=== PATIENT | male | born 1955 | race Caucasian/White ===

== ENCOUNTER 2020-06-19 08:30 | Outpatient (CLI) | payer OTHER, SELFPAY ==
--- NOTE | 2020-06-19 08:48 | XRR_ITS ---
PROCEDURE INFORMATION: Exam: XR Chest, 2 Views Exam date and time: 06/19/2020 8:54 AM Age: 64 years old Clinical indication: Short of breath x 6 months TECHNIQUE: Imaging protocol: XR of the chest Views: 2 views. COMPARISON: No relevant prior studies available. FINDINGS: Lungs: No pneumonia or pulmonary edema. Pleural spaces: No pleural effusion or pneumothorax. Heart/Mediastinum: The cardiac silhouette is not enlarged. The mediastinal contours are normal. Bones/joints: Curvature of the upper thoracic spine convex to the left. Mild multilevel disc degeneration in the thoracic spine. Soft tissues: There is a left epicardial fat pad. XR/XR chest 2V* [id number] IMPRESSION: No acute abnormality.
--- NOTE | 2020-06-19 08:48 | USCV_ITS ---
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 No significant arterial obstruction on the right side Dr Ester Silverio MD [facility] (Electronically Signed) Final Date: 19 June 2020 19:33 S
== END 2020-06-19 08:31 | disposition home or self-care (01) ==
LOC: US 08:30
PROVIDERS: PCP Nurse Practitioner; Visit Provider Nurse Practitioner
DX: R06.02 Shortness of breath (principal); I25.10 Atherosclerotic heart disease of native coronary artery without angina pectoris
CPT/HCPCS: 71046; 93922

== ENCOUNTER → 2021-05-21 13:54 | Outpatient (BNVA) | payer OTHER, SELFPAY | PROVIDERS: PCP Nurse Practitioner; Visit Provider Nurse Practitioner Family | DX: Z20.822 Contact with and (suspected) exposure to COVID-19 (principal) | CPT/HCPCS: 87635 ==

== ENCOUNTER 2021-05-23 12:31 | Outpatient (CLI) | payer OTHER, SELFPAY ==
[2021-05-23 12:38] VITALS: BP 126/76; PULSE 76; RESP 18; TEMP 36.5; O2SAT 94; BMI 31.7
[2021-05-23 13:13] VITALS: BP 109/94; PULSE 78; RESP 18; TEMP 36.8; O2SAT 94
[2021-05-23 14:09] VITALS: BP 115/69; PULSE 78; RESP 18; TEMP 36.6; O2SAT 96
== END 2021-05-23 12:32 | disposition home or self-care (01) ==
LOC: OPS 12:33
PROVIDERS: PCP Nurse Practitioner; Visit Provider Nurse Practitioner Family
DX: U07.1 COVID-19 (principal)
CPT/HCPCS: 96365

== ENCOUNTER → 2021-06-20 12:21 | Outpatient (BNVA) | payer OTHER, SELFPAY | PROVIDERS: PCP Nurse Practitioner; Visit Provider Specialist | DX: G25.81 Restless legs syndrome (principal); I20.0 Unstable angina; R06.02 Shortness of breath; R91.8 Other nonspecific abnormal finding of lung field; M54.16 Radiculopathy, lumbar region; Z87.891 Personal history of nicotine dependence | CPT/HCPCS: 99205 ==

== ENCOUNTER 2021-07-27 12:31 | Outpatient (CLI) | payer OTHER, SELFPAY ==
--- NOTE | 2021-07-27 12:41 | CT_ITS ---
WS: [id number] LDCT LUNG CANCER SCREENING TECHNIQUE: Noncontrast CT of the chest with coronal and sagittal reformatted images. CLINICAL INFORMATION: Z87.891 - Personal history of nicotine dependence COMPARISON: None. DLP: 86.68 mGy.cm DIvol: Mean CTDIvol: 1.60 (mGy) All CT scans at [facility] use at least one of these dose optimization techniques: automat ed exposure control; mA and/or kV adjustment per patient size (includes targeted exams where dose is matched to clinical indication); or iterative reconstruction. FINDINGS: Moderate chronic emphysematous changes. No acute pulmonary infiltrates. No pleural fluid. Normal caliber thoracic aorta. No mediastinal or hilar lymphadenopathy. No axillary lymphadenopathy. Fibrosis the lung apices. Pleural plaques LEFT upper lobe. Adrenal glands are normal. Normal GE junction. Partially visualized low-attenuation lesions in the li cj nonspecific and recommend further evaluation with contrast-enhanced CT abdomen pelvis with liver protocol. Metastatic disease not excluded. Hazy slightly spiculated opacity in the RIGHT lower lobe measuring 12 mm. This has a suspicious confi guration and recommend further evaluation with PET/CT. CT/CT lung screening 74700 IMPRESSION: 1. Spiculated 12 mm lesion RIGHT lower lobe has a suspicious appearance and ne oplasm not excluded. Recommend further evaluation with PET/CT. 2. Partially visualized low attenuation lesions in the liver some of which may represent hepatic cysts, however others are nonspecific and metastatic disease not excluded. Recommend further evaluation with contrast-enhanced CT abdomen p manuel with liver protocol. 3. No mediastinal or hilar lymphadenopathy. LUNG-RADS: 4AS-Probably Suspicious with Significant Findings FOLLOW UP: PET/CT recommended
--- NOTE | 2021-07-27 13:30 | USCV_ITS ---
Rudy Joe Age: 65 Gender: M : 1955 Exam Date: 07/27/2021 12:52 Ordering Phys: Marianna Clemens MD Technologist: Leydi Laguna Exam Location: [facility] Indication: SOB BP: / HR: 68 Rhythm: Sinus Technical Quality: Adequate MEASUREMENTS (Male / Female) Normal Values 2D ECHO LV Diastolic Diameter PLAX 5.4 cm 4.2 - 5.9 / 3.9 - 5.3 cm LV Systolic Diameter PLAX 3.1 cm LV Chamber Size 3.6 cm IVS Diastolic Thickness 0.9 cm 0.6 - 1.0 / 0.6 - 0.9 cm IVS Systolic Thickness 1.5 cm LVPW Diastolic Thickness 1.2 cm 0.6 - 1.0 / 0.6 - 0.9 cm LVPW Systolic Thickness 1.5 cm RV Chamber Size 4.3 cm LVOT Diameter 2.0 cm LV Ejection Fraction 2D Teich 73.3 % LV Ejection Fraction MOD 2C 28.0 % LV Ejection Fraction 2C AL 28.1 % LA Diameter 3.5 cm LA Width 3.4 cm LA Height 2.5 cm RA Width 5.2 cm RA Height 4.3 cm Aorta at Sinotubular Diameter 3.2 cm M-MODE Aortic Annulus Diameter 3.6 cm LA Ao Ratio MM 0.9 MV E Point Septal Separation 1.1 cm DOPPLER AV Peak Velocity 232.0 cm/s LVOT Peak Velocity 81.7 cm/s AV Area Cont Eq vti 1.2 cm squared AV Area Cont Eq pk 1.2 cm squared MV Area PHT 3.3 cm squared Mitral E to A Ratio 1.3 MV E' Velocity 55.0 cm/s Mitral E to MV E' Ratio 9.5 Mitral E to LV E' Lateral Ratio 8.9 Mitral E to LV E' Septal Ratio 10.2 TR Peak Velocity 265.8 cm/s TR Peak Gradient 28.3 mmHg TR Mean Velocity 211.6 cm/s TR Mean Gradient 20.3 mmHg TR Velocity Time Integral 94.3 cm TV Peak E Velocity 70.0 cm/s Right Atrial Pressure 3.0 mmHg Pulmonary Artery Systolic Pressu 31.3 mmHg PV Peak Velocity 71.0 cm/s RV Acceleration Time 0.1 s RV Ejection Time 0.4 s RV AcT/ET 0.4 FINDINGS Left Ventricle Normal left ventricular size and systolic function, EF 55%. (Visual).no regional wall motion abnormalities. Right Ventricle The right ventricle is normal in size and function. Right Atrium The right atrium is normal in size. Left Atrium The left atrium is normal in size. Mitral Valve No gross abnormalities noted . Aortic Valve Mild to moderate aortic valve stenosis with a peak velocity of 2.32 m/s, peak gradient of 22 and a mean gradient of 12 mmHg. Valve area is calculated to be 1.2 cm2. Cannot exclude a bicuspid valve. Tricuspid Valve No gross abnormalities noted Pulmonic Valve Pulmonic valve not well visualized. Pericardium Normal pericardium without effusion. Aorta Normal ascending aorta dimension. CONCLUSIONS Normal left ventricular size and systolic function, EF 55%. (Visual).no regional wall motion abnormalities. Mild to moderate aortic valve stenosis with a peak velocity of 2.32 m/s, peak gradient of 22 and a mean gradient of 12 mmHg. Valve area is calculated to be 1.2 cm2. Cannot exclude a bicuspid aortic valve. There is no pericardial effusion. There are no intracardiac masses. No previous study is available for comparison. Dr Ester Silverio MD [facility] (Electronically Signed) Final Date: 27 July 2021 18:44 S
== END 2021-07-27 12:32 | disposition home or self-care (01) ==
LOC: RAD 12:35
PROVIDERS: PCP Nurse Practitioner; Visit Provider Specialist
DX: Z12.2 Encounter for screening for malignant neoplasm of respiratory organs (principal); Z87.891 Personal history of nicotine dependence; R06.02 Shortness of breath; R91.8 Other nonspecific abnormal finding of lung field
CPT/HCPCS: 71271; 93306

== ENCOUNTER 2021-07-30 11:36 | Outpatient (CLI) | payer OTHER, SELFPAY ==
[2021-07-30 12:25] LABS: Ferritin 258 ng/mL (30-400); Iron 78 ug/dL (59-158)
[2021-07-30 12:41] LABS: Vitamin B12 710 pg/mL (232-1245)
[2021-07-30 13:15] LABS: Percent Saturation 25.4 % (20-50); Total Iron Binding Capacity 307 mcg/dl; Unsaturated Iron Binding 229 ug/dL (112-347)
== END 2021-07-30 11:37 | disposition home or self-care (01) ==
PROVIDERS: PCP Nurse Practitioner; Visit Provider Specialist
DX: G25.81 Restless legs syndrome (principal)
CPT/HCPCS: 82607; 82728; 83540; 83550

== ENCOUNTER → 2021-07-31 08:10 | Outpatient (BNVA) | payer OTHER, SELFPAY | PROVIDERS: PCP Nurse Practitioner; Visit Provider Specialist | DX: G25.81 Restless legs syndrome (principal); I20.0 Unstable angina; Z87.891 Personal history of nicotine dependence; R91.8 Other nonspecific abnormal finding of lung field; K76.89 Other specified diseases of liver | CPT/HCPCS: 99214 ==

== ENCOUNTER → 2021-09-13 08:33 | Outpatient (BNVA) | payer OTHER, SELFPAY | PROVIDERS: PCP Nurse Practitioner; Visit Provider Thoracic Surgery (Cardiothoracic Vascular Surgery) | DX: R91.8 Other nonspecific abnormal finding of lung field (principal); R06.02 Shortness of breath; Z87.891 Personal history of nicotine dependence; F12.90 Cannabis use, unspecified, uncomplicated | CPT/HCPCS: 99203 ==

== ENCOUNTER 2021-09-19 08:29 | Outpatient (CLI) | payer OTHER, SELFPAY ==
--- NOTE | 2021-09-19 14:06 | PFTS_ITS ---
Date of Study:09/19/21 Date of Dictation: 09/24/2021 MECHANICS: Postbronchodilator forced vital capacity (FVC) is reduced Postbronchodilator forced expiratory volume in one second (FEV1) is moderately reduced. 2.46 L 77% FEV1/FVC is reduced. There is significant bronchodilator response. FLOW VOLUME LOOP: Sloping of expiratory limb suggestive of airflow obstruction . LUNG VOLUMES: Total lung capacity (TLC) is normal. Residual volume (RV) is normal. DIFFUSING CAPACITY FOR CARBON MONOXIDE: Normal INTERPRETATION: The pulmonary function tests are consistent with moderate airflow obstruction on spirometry with significant bronchodilator response. Normal lung volumes. Normal gas transfer. Constellation of findings consistent with reversible airflow obstruction like asthma. Correlate clinically. MTDD
== END 2021-09-19 08:30 | disposition home or self-care (01) ==
LOC: RT 08:31
PROVIDERS: PCP Nurse Practitioner; Visit Provider Thoracic Surgery (Cardiothoracic Vascular Surgery)
DX: R06.02 Shortness of breath (principal); F17.210 Nicotine dependence, cigarettes, uncomplicated
CPT/HCPCS: 94060; 94726; 94729; J7611

== ENCOUNTER → 2021-09-28 10:07 | Outpatient (BNVA) | payer OTHER, SELFPAY | PROVIDERS: PCP Nurse Practitioner; Visit Provider Internal Medicine Cardiovascular Disease | DX: R06.02 Shortness of breath (principal); I73.9 Peripheral vascular disease, unspecified; J45.909 Unspecified asthma, uncomplicated; G47.10 Hypersomnia, unspecified; E78.5 Hyperlipidemia, unspecified; E03.9 Hypothyroidism, unspecified; Z87.891 Personal history of nicotine dependence | CPT/HCPCS: 99204; 99205 ==

== ENCOUNTER → 2021-10-11 14:10 | Outpatient (BNVA) | payer OTHER, SELFPAY | PROVIDERS: PCP Nurse Practitioner; Visit Provider Internal Medicine Critical Care Medicine | DX: J44.9 Chronic obstructive pulmonary disease, unspecified (principal); R91.1 Solitary pulmonary nodule; G47.10 Hypersomnia, unspecified; R13.10 Dysphagia, unspecified; I35.0 Nonrheumatic aortic (valve) stenosis; R06.02 Shortness of breath; R91.8 Other nonspecific abnormal finding of lung field; Z86.16 Personal history of COVID-19; Z87.891 Personal history of nicotine dependence; E78.5 Hyperlipidemia, unspecified; E03.9 Hypothyroidism, unspecified | CPT/HCPCS: 99204 ==

== ENCOUNTER 2021-10-30 09:32 | Emergency (ER) | payer OTHER, SELFPAY ==
[2021-10-30 09:52] VITALS: BP 114/73; PULSE 95; RESP 22; TEMP 36.7; O2SAT 95; BMI 33.2
--- NOTE | 2021-10-30 11:35 | ECG_ITS ---
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 Measurements Intervals [place] Rate: 75 P: -56 DC: 126 QRS: 81 QRSD: 109 T: 57 QT: 378 QTc: 424 Interpretive Statements ECTOPIC ATRIAL RHYTHM EARLY REPOLARIZATION [ST ELEVATION WITH NORMALLY INFLECTED T-WAVE] ABNORMAL RHYTHM ECG No previous ECG available for comparison Electronically Signed On 10-30-2021 22:28:46 CDT by Ester Silverio M.D. [email or web address] ([email or web address]) [email or web address] va medical [id number]
--- NOTE | 2021-10-30 11:35 | XR_ITS ---
WS: [id number] Exam: XR chest 1V portable [id number] Date/Time of Exam: 10/30/2021 11:41 AM Reason For Exam: dyspnea Comparison 03/16/2021. The lungs are hyperinflated and clear. Normal cardiomediastinal silhouette. No pleural effusions. Reg ional bony elements are intact. XR/XR chest 1V portable [id number] IMPRESSION: 1. Pulmonary hyperinflation. No acute process.
[2021-10-30 12:00] VITALS: BP 112/64; PULSE 75; RESP 18; O2SAT 95
--- NOTE | 2021-10-30 12:02 | ED_ITS ---
HPI - General Adult General: Chief complaint: Shortness of Breath/Dyspnea Stated complaint: SOB Time Seen by Provider: 10/30/21 11:35 History of Present Illness: Patient is a 66-year-old male with history of recent COVID 2-month ago, COPD not on oxygen presenting to the emergency room with 10 days of dyspnea and productive cough. Patient tells me that he has been having symptoms for the last 10 days that has not improved. Patient reports productive yellow/green phlegm. Patient reports subjective fever and chills at home. Denies any sick contact. Patient reports generalized ache, and shortness of breath. Patient denies any chest pain, no complaints with nausea/vomiting, d iarrhea melena/hematochezia. Patient has no complaints at this time. Patient denies any seasonal allergies. Went to see his primary care provider had an x-ray which showed negative findings in the last 10 days. Patient has not been started on any antibiotics. Onset:10 days ago Duration:10 days Location:home Severity:mild/moderate Associated symptoms: Reports dyspnea; Deny chest pain, nausea, rash, palpitations or vomiting Review of Systems Const: Denies: fever(s) or chills Eyes: Denies: change in vision ENMT: Denies: mouth pain Card: Denies: chest pain or palpitations Resp: Reports: dyspnea and productive cough GI: Denies: abdominal pain, nausea, vomiting or diarrhea : Denies: dysuria Musc: Denies: extremity pain Skin/Breast: Denies: rash or new lesions Neuro: Denies: weakness in extremities Psych: Reports: other (Normal mood) Jossue/Lymph: Denies: easy bruising PFS ED PFSH: Medical History BPH (benign prostatic hyperplasia) COPD (chronic obstructive pulmonary disease) Former smoker Hyperlipidemia Hypothyroidism Non-Hodgkin lymphoma in remission PAD (peripheral artery disease) Family History Father CAD (coronary artery disease) S/P CABG (coronary artery bypass graft) Hypertension Myocardial infarction Social History Smoking and tobacco status: former smoker Quit status (tobacco): has quit using tobacco Year quit tobacco: 2020 Former quit date comment: 1 ppd X 50 years Alcohol intake: former Year of sobriety/quit date alcohol: 2011 Physical Exam Const: COMMON NORMALS: alert HENMT: COMMON NORMALS: atraumatic HEAD & SCALP: atraumatic MOUTH: moist mucous membranes not abnormal Eye: COMMON NORMALS: EOMs intact bilaterally and conjunctivae normal CONJUNCTIVA: Yes conjunctivae normal Neck/C-Spine: COMMON NORMALS: full ROM and supple Resp: COMMON NORMALS: normal respiratory effort and clear to auscultation bilaterally AUSCULTATION: clear to auscultation bilaterally OTHER: + no wheezes b/l Cardio: COMMON NORMALS: regular rate RATE: regular rate GI: COMMON NORMALS: Soft to palpation and non-tender PALPATION: Yes Soft to palpation Extremity: COMMON NORMALS: full ROM Neuro: SENSORIUM/ORIENTATION: Yes alert MOTOR EXAM: No Abnormal motor strength present and Other motor observations present (no focal motor deficits) Psych: COMMON NORMALS: speech normal SPEECH: Yes normal speech MOOD & AFFECT: Yes euthymic mood Course Vital Signs: Vital signs: Vital Signs Temperature 98.1 F 10/30/21 09:52 Pulse Rate 71 10/30/21 13:58 Respiratory Rate 16 10/30/21 13:58 Blood Pressure 112/64 10/30/21 12:00 Pulse Oximetry 92 10/30/21 13:58 [facility] - General Adult Medical Decision Making 66-year-old male with a history of COVID from 2-month ago, COPD presenting to emergency room with productive cough and dyspnea x10 days. On exam, patient is afebrile, hemodynamically stable, no increased work of breathing. Patient satting greater than 90% on room air. No finding of wheezing on lung exam. Minimal white count today. X-ray chest negative for any acute pneumonia. Patient received DuoNeb and steroid reports symptoms of cough and dyspnea improved. Doubt ACS/PE or other emergent causes of chest pain. No suspicion for aortic dissection given no widened mediastinum, 2+ upper extremity pulses, or tearing pain. No suspicion for PE given no pleuritic chest pain, recent immobilization or surgery hemoptysis, or other VTE risk factors. EKG is non-ischemic. XR normal. Rx albuterol inhaler PRN dyspnea and cough Disposition: Discharge. Patient counseled regarding diagnostic impression, treatment plan. Patient given ED strict return precautions to return for continuation, worsening, or development of new symptoms. Instructed to f/u w/ PCP regarding symptoms today. Patient verbalized understanding. Lab Data : 10/30/21 12:00 10/30/21 12:00 Radiology Impressions Chest X-Ray 10/30/21 11:35 IMPRESSION: 1. Pulmonary hyperinflation. No acute process. Laboratory Results WBC 9.7 10^3/uL (4.0-10.0) 10/30/21 12:00 RBC 4.90 10^6/uL (4.1-5.3) 10/30/21 12:00 Hgb 14.4 g/dL (11.7-16.6) 10/30/21 12:00 Hct 43.8 % (42.0-52.0) 10/30/21 12:00 MCV 89.4 fl (80-94) 10/30/21 12:00 MCH 29.4 pg (28.0-34.0) 10/30/21 12:00 MCHC 32.9 g/dL (30.0-36.0) 10/30/21 12:00 RDW 14.5 % (12.1-15.1) 10/30/21 12:00 Plt Count 256 10^3/cmm (130-400) 10/30/21 12:00 MPV 8.5 fL (7.4-10.4) 10/30/21 12:00 Neut % (Auto) 67.4 % 10/30/21 12:00 Lymph % (Auto) 21.3 % 10/30/21 12:00 Gates % (Auto) 6.4 % 10/30/21 12:00 Eos % (Auto) 2.2 % 10/30/21 12:00 Baso % (Auto) 0.5 % 10/30/21 12:00 Neut # (Auto) 6.56 10^3/uL (1.8-7.7) 10/30/21 12:00 Lymph # (Auto) 2.1 10^3/uL (0.8-4.8) 10/30/21 12:00 Gates # (Auto) 0.6 10^3/uL (0.2-0.9) 10/30/21 12:00 Eos # (Auto) 0.2 10^3/uL (0.0-0.8) 10/30/21 12:00 Baso # (Auto) 0.1 10^3/uL (0.0-0.1) 10/30/21 12:00 Nucleated RBC % (auto) 0 % 10/30/21 12:00 Nucleated RBCs # 0.0 /100WBC 10/30/21 12:00 Sodium 135 mmol/L (136-145) L 10/30/21 12:00 Potassium 4.1 mmol/L (3.5-5.1) 10/30/21 12:00 Chloride 98 mmol/L (98-107) 10/30/21 12:00 Carbon Dioxide 27 mmol/L (22-29) 10/30/21 12:00 Anion Gap 14.1 (5-19) 10/30/21 12:00 BUN 18 mg/dL (8-23) 10/30/21 12:00 Creatinine 1.2 mg/dL (0.7-1.2) 10/30/21 12:00 GFR Calculation 60.2 mL/min (90-130) L 10/30/21 12:00 Glucose 103 mg/dL (65-115) 10/30/21 12:00 Calculated Osmolality 282 mOsm/kg (285-295) L 10/30/21 12:00 Calcium 8.9 mg/dL (8.5-10.5) 10/30/21 12:00 Troponin T Baseline 9 ng/L (0-15) 10/30/21 12:00 Troponin T 120 Minute 7.68 ng/L (0-15) 10/30/21 13:37 C-Reactive Protein 22.8 mg/L (0.0-4.9) H 10/30/21 12:00 NT-Pro-B Natriuret Pep 269 pg/mL (0-125) H 10/30/21 12:00 Procalcitonin 0.07 ng/mL (0-0.5) 10/30/21 12:00 Imaging Data Other Imaging: Radiologist's impression: [facility] [address] [place] [address] XRay Report Signed Patient: Rudy Joe Unit #: [id number] : 1955 Age/Sex: 66 / M ADM Date: 10/30/21 Loc: ER Room/Bed: Attending Dr: Ordering Provider/Ordering MD: Thomas Lambert MD Date of Service: 10/30/21 Procedure(s): XR chest 1V portable [id number] Accession Number(s): [id number] Report Number: [id number] WS: [id number] Exam: XR chest 1V portable [id number] Date/Time of Exam: 10/30/2021 11:41 AM Reason For Exam: dyspnea Comparison 03/16/2021. The lungs are hyperinflated and clear. Normal cardiomediastinal silhouette. No pleural effusions. Regional bony elements are intact. XR/XR chest 1V portable [id number] IMPRESSION: 1. Pulmonary hyperinflation. No acute process. ? Dictated By: Jean Claude Copeland DO Signed By: Jean Claude Copeland DO Signed Date/Time: 10/30/21 1151 DD/ 1150 Discharge Plan Discharge Patient Disposition: Home Clinical Impression: Dyspnea, Cough Condition: Stable Prescriptions: New albuterol sulfate 90 mcg/actuation HFA aerosol inhaler 2 inh inhalation Q4H PRN (Reason: shortness of breath or wheezing) 5 Days Qty: 6.7 0RF No Action pantoprazole 40 mg tablet,delayed release (DR/EC) 40 mg PO .3-4 times daily 0RF tamsulosin 0.4 mg capsule 0.4 mg PO TID 0RF Spiriva with HandiHaler 18 mcg capsule, w/inhalation device 1 cap inhalation DAILY 30 Days Qty: 60 3RF Rx Instructions: puncture 1 cap using device; one dose = 2 inhalations fluticasone propion-salmeterol [Wixela Inhub] 250-50 mcg/dose blister with device 1 inh inhalation Q12H 30 Days Qty: 60 3RF diphenhydramine HCl [Sleep Aid (diphenhydramine)] 25 mg capsule 25 mg PO .HS PRN (Reason: Sleep) 0RF atorvastatin 10 mg tablet 10 mg PO DAILY Qty: 30 3RF aspirin 81 mg tablet,delayed release (DR/EC) 81 mg PO DAILY Qty: 30 3RF hydrochlorothiazide 12.5 mg tablet 12.5 mg PO DAILY Qty: 30 3RF albuterol sulfate [ProAir HFA] 90 mcg/actuation HFA aerosol inhaler 1 inh inhalation QID PRN (Reason: shortness of breath or wheezing) Qty: 6.7 2RF pramipexole [Mirapex] 0.5 mg tablet 0.5 mg PO QID Qty: 240 4RF Rx Instructions: 1-2 tabs up to 4 times a day Discharge Orders: Discharge ED (Routine); Ordered 10/30/21 Ordered By: Thomas Lambert Referrals: Marisa Ram FNP [Primary Care Provider] - Discharge Diet: Advance as tolerated Discharge Activity: Increase activity as tolerated Patient Instructions: Dyspnea (ED), Acute Cough (ED) Activity Restrictions/Additional Instructions: Come back to the emergency room if your symptoms worsen, have any shortness of breath, fever/chills, dehydration, inability tolerate food or drinks, any difficulty breathing, or any new or concerning complaints. 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
[2021-10-30 12:19] LABS: Basophils # 0.1 10^3/uL (0.0-0.1); Basophils % 0.5 %; Eosinophils # 0.2 10^3/uL (0.0-0.8); Eosinophils % 2.2 %; Hematocrit 43.8 % (42.0-52.0); Hemoglobin 14.4 g/dL (11.7-16.6); Lymphocytes # 2.1 10^3/uL (0.8-4.8); Lymphocytes % 21.3 %; Mean Corpuscular HGB Conc 32.9 g/dL (30.0-36.0); Mean Corpuscular Hemoglobin 29.4 pg (28.0-34.0); Mean Corpuscular Volume 89.4 fl (80-94); Mean Platelet Volume 8.5 fL (7.4-10.4); Monocytes # 0.6 10^3/uL (0.2-0.9); Monocytes % 6.4 %; Neutrophils # 6.56 10^3/uL (1.8-7.7); Neutrophils % 67.4 %; Nucleated Red Blood Cells % 0 %; Platelet Count 256 10^3/cmm (130-400); Red Cell Distribution Width 14.5 % (12.1-15.1); White Blood Count 9.7 10^3/uL (4.0-10.0)
[2021-10-30] MEDS: ipratropium-albuterol 3 mL Neb INHALATION ×3 (12:26→12:36)
[2021-10-30 12:28] VITALS: PULSE 77; RESP 20; O2SAT 96
[2021-10-30 12:36] LABS: Troponin(5th) Baseline 9 ng/L (0-15)
[2021-10-30 12:41] VITALS: PULSE 84; RESP 18; O2SAT 97
[2021-10-30 12:48] LABS: NT Pro B Type Natriuretic Pept 269 pg/mL (0-125); Procalcitonin 0.07 ng/mL (0-0.5)
[2021-10-30 12:58] LABS: Anion Gap 14.1 (5-19); Blood Urea Nitrogen 18 mg/dL (8-23); C Reactive Protein 22.8 mg/L (0.0-4.9); Calcium 8.9 mg/dL (8.5-10.5); Carbon Dioxide 27 mmol/L (22-29); Chloride 98 mmol/L (98-107); Creatinine Clr Calc Pharmacy 69.3693; Glomerular Filtration Rate 60.2 mL/min (90-130); Glucose 103 mg/dL (65-115); Osmolality Calculated 282 mOsm/kg (285-295); Potassium 4.1 mmol/L (3.5-5.1); Sodium 135 mmol/L (136-145)
--- NOTE | 2021-10-30 13:35 | ECG_ITS ---
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 Measurements Intervals [place] Rate: 98 P: 76 VA: 130 QRS: 96 QRSD: 110 T: 66 QT: 357 QTc: 456 Interpretive Statements SINUS RHYTHM BORDERLINE RIGHT AXIS DEVIATION [QRS AXIS > 90] Compared to ECG 10/30/2021 11:43:55 Ectopic atrial rhythm no longer present Early repolarization no longer present Electronically Signed On 10-30-2021 22:36:57 CDT by Ester Silverio M.D. [id number]
[2021-10-30 13:58] VITALS: PULSE 71; RESP 16; O2SAT 92
[2021-10-30 13:58] LABS: Troponin 5 2HR 7.68 ng/L (0-15)
[2021-10-30 14:35] LABS: Troponin 5 2HR Delta -1.34 ABS# (0-10)
[2021-10-30 17:21] LABS: Adenovirus Not Detected (NOT DETECT); Chlamydia Pneumoniae Not Detected (NOT DETECT); Coronavirus 229E,HKU1,NL63,OC4 Not Detected (NOT DETECT); Human Metapneumovirus Not Detected (NOT DETECT); Human Rhinovirus/Enterovirus Not Detected (NOT DETECT); Influenza A Not Detected (NOT DETECT); Influenza A H1 Not Detected (NOT DETECT); Influenza A H1-2009 Not Detected (NOT DETECT); Influenza A H3 Not Detected (NOT DETECT); Influenza B Not Detected (NOT DETECT); Mycoplasma Pneumoniae Not Detected (NOT DETECT); Parainfluenza Virus Type 1 Not Detected (NOT DETECT); Parainfluenza Virus Type 2 Not Detected (NOT DETECT); Parainfluenza Virus Type 3 Not Detected (NOT DETECT); Parainfluenza Virus Type 4 Not Detected (NOT DETECT); Respiratory Syncytial Virus A Not Detected (NOT DETECT); Respiratory Syncytial Virus B Not Detected (NOT DETECT); SARS-COV-2 Not Detected (NOT DETECT)
== END 2021-10-30 14:15 | disposition home or self-care (01) ==
PROVIDERS: Emergency Provider Emergency Medicine; PCP Nurse Practitioner
DX: R06.00 Dyspnea, unspecified (principal); R05.9 Cough, unspecified; Z79.82 Long term (current) use of aspirin; J44.9 Chronic obstructive pulmonary disease, unspecified; E78.5 Hyperlipidemia, unspecified; Z85.72 Personal history of non-Hodgkin lymphomas; Z87.891 Personal history of nicotine dependence
CPT/HCPCS: 36415; 71045; 80048; 83880; 84145; 84484; 85025; 86140; 87486; 87581; 87633; 93005; 94640; 96374; 99285; J2930

== ENCOUNTER → 2021-11-09 08:36 | Outpatient (BNVA) | payer OTHER, SELFPAY | PROVIDERS: PCP Nurse Practitioner; Visit Provider Surgery | DX: R13.10 Dysphagia, unspecified (principal) | CPT/HCPCS: 99203 ==

== ENCOUNTER 2021-11-14 06:56 | Day surgery (SDC) | payer OTHER, SELFPAY ==
[2021-11-14 07:17] VITALS: BP 105/72; PULSE 81; RESP 18; TEMP 36.2; O2SAT 94
[2021-11-14] MEDS: sodium chloride 0.9% 1,000 ML 30 ML IV (07:20)
--- NOTE | 2021-11-14 07:25 | W.PM.OPSUD ---
Surgery/Procedure H&P Update DATE OF PROCEDURE: November 14, 2021 DATE H&P PERFORMED: 11/09/21 CHANGES TO PREVIOUS DOCUMENTATION: None PLANNED PROCEDURE: Operation Date: 11/14/21 08:30 Proposed Procedures p EGD 93426,R13.10(Not Applicable) - Willem Currie DO
--- NOTE | 2021-11-14 08:14 | ANES.PREANE2 ---
Pre-Anesthetic Assessment Height/Weight: Height 1.75 m Weight 99.79 kg Temp Pulse Resp BP Pulse Ox 97.2 F L 81 18 105/72 94 11/14/21 07:17 11/14/21 07:17 11/14/21 07:17 11/14/21 07:17 11/14/21 07:17 Operation Date: 11/14/21 08:30 Proposed Procedures p EGD 41725,R13.10(Not Applicable) - Willem Currie DO Familial anesthetic complications: none Was Beta Carolee taken within 24 hours: N/A Was Clonidine taken within 24 hours: N/A Last intake: Intake Last Liquid Date 11/13/21 Last Liquid Time 23:00 Last Solid Date 11/13/21 Last Solid Time 23:00 Social No alcohol and No tobacco Exam alert, oriented x 3, clear to auscultation bilaterally and regular rate & rhythm Airway Mallampati: Class II Dentition: full Pulmonary Asthma COPD - no O2, no hospitalization CV/HEM Peripheral Vascular Disease Aortic stenosis - moderate Metabolic Hyperlipidemia and Thyroid Disease Anesthetic Plan ASA status: 3 Anesthesia: MAC Risk of > 500 ml blood loss (7ml/kg in children): No Medications/Allergies Home Medications Medication Instructions Recorded Confirmed Last Taken Type albuterol sulfate 90 mcg/actuation 1 inh INHALATION QID PRN #6.7 g 09/28/21 11/14/21 11/13/21 Rx aerosol inhaler (ProAir HFA) aspirin 81 mg tablet,delayed 81 mg PO DAILY #30 tab 09/28/21 11/14/21 11/13/21 Rx release atorvastatin 10 mg tablet 10 mg PO DAILY #30 tab 09/28/21 11/14/21 11/13/21 Rx hydrochlorothiazide 12.5 mg tablet 12.5 mg PO DAILY #30 tab 09/28/21 11/14/21 11/13/21 Rx pantoprazole 40 mg tablet,delayed 40 mg PO .3-4 times daily tab 09/28/21 11/14/21 11/13/21 History release tamsulosin 0.4 mg capsule 0.4 mg PO TID cap 09/28/21 11/14/21 11/13/21 History fluticasone 250 mcg-salmeterol 50 1 inh INHALATION Q12H 30 Days #60 10/11/21 11/14/21 11/13/21 Rx mcg/dose blistr powdr for ea inhalation (Wixela Inhub) tiotropium bromide 18 mcg capsule 1 cap INHALATION DAILY 30 Days #60 10/11/21 11/14/21 11/13/21 Rx with inhalation device (Spiriva inh with HandiHaler) ropinirole 3 mg tablet 3 mg PO TID 11/14/21 11/14/21 11/14/21 History Allergies Allergy/AdvReac Type Severity Reaction Status Date / Time No Known Allergies Allergy Verified 11/09/21 08:50 [facility] Anesthesia Medical History BPH (benign prostatic hyperplasia) COPD (chronic obstructive pulmonary disease) Former smoker Fracture of right femur following insertion of orthopedic implant Hyperlipidemia Hypothyroidism Non-Hodgkin lymphoma in remission PAD (peripheral artery disease) Family History Father CAD (coronary artery disease) S/P CABG (coronary artery bypass graft) Hypertension Myocardial infarction Social History Smoking and tobacco status: former smoker Quit status (tobacco): has quit using tobacco Year quit tobacco: 2020 Former quit date comment: 1 ppd X 50 years Alcohol intake: former Year of sobriety/quit date alcohol: 2011 Data Anesthesia Cardiac Studies: Echocardiogram 07/27/21
[2021-11-14 08:37] VITALS: BP 81/50; PULSE 73; RESP 14; TEMP 36.4; O2SAT 91
[2021-11-14 08:51] VITALS: BP 102/60; PULSE 82; RESP 16; O2SAT 94
[2021-11-14 09:00] VITALS: BP 104/62; PULSE 74; RESP 16; O2SAT 94
== END 2021-11-14 09:10 | disposition home or self-care (01) ==
PROVIDERS: PCP Nurse Practitioner; Visit Provider Surgery
PROC: 0DJ08ZZ Inspection of Upper Intestinal Tract, Via Natural or Artificial Opening Endoscopic (ICD-10-PCS; CPT 43235; principal; 2021-11-14 08:30)
DX: R13.10 Dysphagia, unspecified (principal); K20.90 Esophagitis, unspecified without bleeding; J44.9 Chronic obstructive pulmonary disease, unspecified; Z99.81 Dependence on supplemental oxygen; E78.5 Hyperlipidemia, unspecified; Z79.82 Long term (current) use of aspirin; N40.0 Benign prostatic hyperplasia without lower urinary tract symptoms; Z87.891 Personal history of nicotine dependence; E03.9 Hypothyroidism, unspecified
CPT/HCPCS: 43239; 88305; J2704; J7030

== ENCOUNTER 2021-11-19 06:54 | Outpatient (CLI) | payer OTHER, SELFPAY ==
[2021-11-19 07:21] VITALS: BMI 32.5
--- NOTE | 2021-11-19 07:26 | NMCV_ITS ---
NM nikki perf SPECT r/s* [id number] Rudy Joe Age: 66 Gender: M : 1955 Exam Date: 11/19/2021 07:26 Ordering Phys: Lynne Mane MD ([email or web address]) Technologist: GENOVEVA Peters Exam Location: [facility] Indications: SHORTNESS OF BREATH STRESS TEST Please see separate stress test report in [facility] for full findings IMAGE PROTOCOL Rest/Stress 1 Exercise Day Radiopharmaceutical Dose (mCi) Administration Site Administered by Rest: Tc-99m 10.9 IV GENOVEVA Galeas Sestamibi Stress:Tc-99m 32.8 IV GENOVEVA Galeas Sestamijaleesa Rest: 19-Nov-2021 60 Discovery 630 Stress: 19-Nov-2021 30 Discovery 630 Radiopharmaceutical was injected at 85 % maximum heart rate. Images obtained in supine and prone position. SPECT RESULTS Technical Quality: Excellent Raw Data Analysis: Normal Image Corrections: No attenuation or motion correction applied Summed Stress Score: 0 Summed Rest Score: 1 Summed Difference Score: 0 PERFUSION FINDINGS There is a small sized, fixed perfusion defect seen in the apical wall. This is consistent with small sized prior infarct in the LAD territory with no evidence of ischemia FUNCTIONAL RESULTS (calculated via Gated SPECT) Stress Image LV EF (%): 71 Stress EDV (mL):125 TID: 0.95 Stress ESV (mL):36 FUNCTIONAL FINDINGS: There is normal left ventricular systolic function. IMPRESSIONS 1. Abnormal myocardial perfusion imaging with small sized infarct seen in LAD territory. No evidence of ischemia is seen 2. LV systolic function is normal Isra Reyes MD (Electronically Signed) Final Date: 19 November 2021 10:43 S
--- NOTE | 2021-11-19 07:26 | ECG_ITS ---
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 Interpretive Statements NAME OF STUDY: EXERCISE SESTAMIBI STRESS TEST INDICATION: [WILKINS, ] EXERCISE DATA: The patient was exercised by Chapito protocol. Baseline heart rate was 68 beats per minute. Baseline blood pressure was 105/75 millimeters of mercury. Target heart rate was 129 beats per minute. Maximum heart rate achieved was 138, which was 106% of the target heart rate. Maximum blood pressure was 174/71 millimeters of mercury. Total exercise time was 4 minutes 16 seconds. Maximum METs achieved was 7.The reason for ending the test was completion of the protocol. The patient complained of shortness of breath during the stress test, which then resolved at the end of the test. ELECTROCARDIOGRAM: BASELINE: Showed sinus rhythm, normal axis, no significant ST-T changes at the baseline noted. [] EXERCISE: At the peak exercise level, [] No significant ST-T changes suggestive of ischemia noted. [] RECOVERY: During the recovery period, heart rate dropped appropriately. No significant ST-T changes in the recovery suggestive of ischemia noted. [] CONCLUSION: 1. Exercise capacity fair. 2. Heart rate response was appropriate. 3. Blood pressure response was appropriate 4. Symptoms not suggestive of ischemia. 5. Electrocardiogram portion of the stress test was not suggestive of ischemia. 6. Nuclear scan will be documented separately. Electronically Signed On 12-01-2021 12:38:11 CDT by Isra Reyes M.D. [id number]
[2021-11-19 09:20] VITALS: BP 144/78; PULSE 91
== END 2021-11-19 06:55 | disposition home or self-care (01) ==
LOC: CDL 06:54
PROVIDERS: PCP Nurse Practitioner; Visit Provider Internal Medicine Cardiovascular Disease
DX: R06.02 Shortness of breath (principal)
CPT/HCPCS: 78452; 93017; A9500

== ENCOUNTER → 2021-11-23 11:13 | Outpatient (BNVA) | payer OTHER, SELFPAY | PROVIDERS: PCP Nurse Practitioner; Visit Provider Nurse Practitioner Family | DX: I35.0 Nonrheumatic aortic (valve) stenosis (principal) | CPT/HCPCS: 99213 ==

== ENCOUNTER → 2021-11-26 13:18 | Outpatient (BNVA) | payer OTHER, SELFPAY | PROVIDERS: PCP Nurse Practitioner; Visit Provider Internal Medicine Critical Care Medicine | DX: J44.9 Chronic obstructive pulmonary disease, unspecified (principal); R91.1 Solitary pulmonary nodule; G47.10 Hypersomnia, unspecified; R13.10 Dysphagia, unspecified; I35.0 Nonrheumatic aortic (valve) stenosis | CPT/HCPCS: 99214 ==

== ENCOUNTER → 2021-11-30 10:07 | Outpatient (BNVA) | payer OTHER, SELFPAY | PROVIDERS: PCP Nurse Practitioner; Visit Provider Surgery | DX: Z09 Encounter for follow-up examination after completed treatment for conditions other than malignant neoplasm (principal); R13.10 Dysphagia, unspecified; K22.70 Barrett's esophagus without dysplasia | CPT/HCPCS: 99213 ==

== ENCOUNTER 2022-01-01 10:23 | Outpatient (CLI) | payer OTHER, SELFPAY ==
--- NOTE | 2022-01-01 10:45 | FL_ITS ---
WS: [id number] MODIFIED BARIUM SWALLOW HISTORY: FLUOROSCOPY TIME: 1min [id number] # of spot films: 1 Modified barium swallow was performed by the speech pathologist. Fluoroscopy was provided with the pa tient in a lateral projection. Multiple food consistencies were provided. Patient swallowed all food consistencies and liquid consistencies with no difficulty. Several episode s of laryngeal penetration were evident. This happened with the thin liquids and also the liquid joshua er. No aspiration. Barium tablet swallowed without difficulty. FL/FL barium swallow modifd [id number] IMPRESSION: 1. Several episodes of laryngeal penetration with the thin liquids. No aspirat ion. 2. Otherwise negative. Please see speech therapist report also for recommendations.
== END 2022-01-01 10:24 | disposition home or self-care (01) ==
LOC: RAD 10:24
PROVIDERS: PCP Nurse Practitioner; Visit Provider Surgery
DX: K22.70 Barrett's esophagus without dysplasia (principal); R13.10 Dysphagia, unspecified
CPT/HCPCS: 74230; 92611

== ENCOUNTER 2022-01-04 13:32 | Outpatient (CLI) | payer OTHER, SELFPAY ==
--- NOTE | 2022-01-04 | CT_ITS ---
WS: [id number] CT CHEST WITHOUT INTRAVENOUS CONTRAST HISTORY: Abnormal finding f/u TECHNIQUE: Contiguous 5 mm axial imaging performed on the thorax. Coronal and sagittal reformats are submitted. All CT scans at [facility] use at least one of these dose optimization techniques: automated exposure control; mA and/or kV adjustment per patient size (includes targeted exams where dose is matched to clinical indication); or iterative reconstruction. CONTRAST: None DLP: 769.90 mGy.cm COMPARISON: 08/16/2021 and 07/27/2021; PET/CT 08/18/2021 Lungs and central airway: Hyperinflated lungs. Chronic emphysema. Previous the described asymmetry in the RIGHT lower lobe is unchanged. The spiculated on today's examination. Branching pattern suggesti ng this may be focal bronchiectasis. There are 2 adjacent nodules measuring 5 mm in diameter. This ma y be scarring. No suspicious or increasing size or number of nodules. Pleura: Normal. No pleural effusion. Heart and pericardium: Normal size heart with no pericardial effusion. Mediastinum and dania: No mediastinum or hilar adenopathy. Vessels: Mild atherosclerosis aorta. Chest wall and lower neck: No soft tissue masses. Upper abdomen: Multiple low-attenuation lesions in the liver likely cysts. Negative on a prior recent PET/CT. No adrenal mass. Contracted gallbladder. Osseous structures: No destructive process. CT/CT chest wo con [id number] IMPRESSION: 1. Chronic emphysema. 2. Interstitial thickening in a branching distribution and to adjacent nodules in the RIGHT lower lobe similar to prior studies. Negative on recent PET/CT. N o new or increasing size of nodule within either lung. 3. Hepatic cysts. 4. No adenopathy.
== END 2022-01-04 13:33 | disposition home or self-care (01) ==
LOC: RAD 13:33
PROVIDERS: PCP Nurse Practitioner; Visit Provider Internal Medicine Critical Care Medicine
DX: R91.8 Other nonspecific abnormal finding of lung field (principal); Z09 Encounter for follow-up examination after completed treatment for conditions other than malignant neoplasm; J43.8 Other emphysema; R13.10 Dysphagia, unspecified; K76.89 Other specified diseases of liver
CPT/HCPCS: 71250; 99213

== ENCOUNTER 2022-02-21 20:00 | Outpatient (CLI) | payer OTHER, SELFPAY | END 2022-02-21 20:01 | disposition home or self-care (01) | LOC: SLEEP 02-22 06:24 | PROVIDERS: PCP Nurse Practitioner; Visit Provider Nurse Practitioner | DX: R06.83 Snoring (principal); R53.83 Other fatigue; G47.33 Obstructive sleep apnea (adult) (pediatric) | CPT/HCPCS: 95810 ==

== ENCOUNTER 2022-05-21 20:00 | Outpatient (CLI) | payer OTHER, SELFPAY | END 2022-05-21 20:01 | disposition home or self-care (01) | LOC: SLEEP 05-22 07:49 | PROVIDERS: PCP Nurse Practitioner; Visit Provider Nurse Practitioner | DX: G47.33 Obstructive sleep apnea (adult) (pediatric) (principal); R06.02 Shortness of breath; J44.9 Chronic obstructive pulmonary disease, unspecified | CPT/HCPCS: 95811 ==

== ENCOUNTER → 2022-05-27 14:31 | Outpatient (BNVA) | payer OTHER, SELFPAY | PROVIDERS: PCP Nurse Practitioner; Visit Provider Internal Medicine Cardiovascular Disease | DX: R06.02 Shortness of breath (principal); E78.5 Hyperlipidemia, unspecified; I73.9 Peripheral vascular disease, unspecified; E03.9 Hypothyroidism, unspecified; J44.9 Chronic obstructive pulmonary disease, unspecified; G47.10 Hypersomnia, unspecified; J45.909 Unspecified asthma, uncomplicated; Z87.891 Personal history of nicotine dependence; G47.30 Sleep apnea, unspecified; J32.9 Chronic sinusitis, unspecified; R09.82 Postnasal drip | CPT/HCPCS: 99214; Q3014 ==

== ENCOUNTER → 2022-08-08 09:58 | Outpatient (BNVA) | payer OTHER, SELFPAY | PROVIDERS: PCP Nurse Practitioner; Visit Provider Specialist | DX: G25.81 Restless legs syndrome (principal); G47.00 Insomnia, unspecified; R91.1 Solitary pulmonary nodule; G47.33 Obstructive sleep apnea (adult) (pediatric); F17.210 Nicotine dependence, cigarettes, uncomplicated | CPT/HCPCS: 99214 ==

== ENCOUNTER → 2023-01-27 13:15 | Outpatient (BNVA) | payer OTHER, SELFPAY | PROVIDERS: PCP Nurse Practitioner; Visit Provider Internal Medicine Pulmonary Disease | DX: J43.8 Other emphysema (principal); G47.30 Sleep apnea, unspecified; Z87.891 Personal history of nicotine dependence; J32.9 Chronic sinusitis, unspecified | CPT/HCPCS: 99214 ==

== ENCOUNTER 2023-03-03 06:19 | Outpatient (CLI) | payer OTHER, SELFPAY ==
--- NOTE | 2023-03-03 | US_ITS ---
WS: [id number] RIGHT UPPER QUADRANT ULTRASOUND HISTORY: RUQ, Elevated Liver Enzymes COMPARISON: None available. Liver: 16.6 cm in length. Liver is top normal size. The surface of the liver is becoming still slight ly irregular and nodular. There are 2 cysts within the liver. The largest measures 2.0 x 2.4 x 2.1 cm . This is a small cluster of cysts or a cyst with septation. No solid mass or increased vascularity. Portal Vein: Normal hepatopetal flow with monophasic waveform. Gallbladder: Normally distended gallbladder with no stones or wall thickening. CBD: 0.4 cm Pancreas: Normal size and echogenicity. Right kidney: 11.0 cm in length. Normal size and echogenicity. No hydronephrosis or mass. Aorta and IVC: Unremarkable abdominal aorta and IVC. No ascites. IMPRESSION: 1. Hepatic cysts, no solid mass. 2. Mild heterogeneity within the liver and changes suspicious for early changes of cirrhosis. 3. Negative gallbladder.
--- NOTE | 2023-03-03 | USCV_ITS ---
Rudy Joe Age: 67 Gender: M : 1955 Exam Date: 03/03/2023 06:32 Ordering Phys: Marisa Ram Technologist: REGINE Exam Location: [facility] [place] Indication: Screening. h/o smoking HISTORY: Diameter (cm) AP x Transverse x Length Velocity (cm/s) Waveform Prox Aorta: 1.89 x 2.22 x 74.10 Mid Aorta: 1.81 x 2.18 x 60.30 Distal Aorta: 1.75 x 2.10 x 69.20 Right Iliac Prox: 1.03 x 1.45 x 99.20 Left Iliac Prox: 1.04 x 1.03 x 103.30 Stent Prox Landing x x Aneurysmal Sac Max x x Lt Lat Sac Dim Rt Lat Sac Dim Stent Dist Landing x x Right Iliac Stent x x Left Iliac Stent x x Right Renal Art Left Renal Art FINDINGS: Comparison: none available. A complete assessment of the abdominal aorta was not possible. No evidence of abdominal aortic or bilateral iliac aneurysm. CONCLUSIONS No evidence of abdominal aortic or bilateral iliac aneurysm. Dr. Milagros Call DO (Electronically Signed) Final Date: 03 March 2023 12:08 S
== END 2023-03-03 06:20 | disposition home or self-care (01) ==
LOC: RAD 06:20
PROVIDERS: PCP Nurse Practitioner; Visit Provider Nurse Practitioner
DX: Z13.6 Encounter for screening for cardiovascular disorders (principal); Z87.891 Personal history of nicotine dependence; R10.11 Right upper quadrant pain; R74.8 Abnormal levels of other serum enzymes; K76.89 Other specified diseases of liver
CPT/HCPCS: 76705; 76706

== ENCOUNTER 2023-04-14 14:34 | Outpatient (CLI) | payer OTHER, SELFPAY ==
--- NOTE | 2023-04-14 14:45 | CT_ITS ---
WS: [id number] LDCT LUNG CANCER SCREENING TECHNIQUE: Noncontrast CT of the chest with coronal and sagittal reformatted images. CLINICAL INFORMATION: Cancer Screen COMPARISON: CT chest 01/04/2022 DLP: 89.41 mGy.cm DIvol: Mean CTDIvol: 1.90 (mGy) All CT scans at [facility] use at least one of these dose optimization techniques: automat ed exposure control; mA and/or kV adjustment per patient size (includes targeted exams where dose is matched to clinical indication); or iterative reconstruction. FINDINGS: Small slightly spiculated nodule LEFT upper lobe along the mediastinum measuring 7 mm appea rs more prominent today compared to the prior studies. Recommend 6-month follow-up. Stable small cluster nodules in the RIGHT lower lobe. Slight bibasilar atelectasis. A few calcified g ranulomas. Fibrosis in the lung apices. Pleural plaques in the LEFT lung apex. Pleural parenchymal fi brosis in the LEFT greater than RIGHT lung apices similar to previous. Moderate chronic emphysematous changes. No acute pulmonary infiltrates. No focal pneumonia or pleural fluid. Normal caliber thoracic aorta. Aortic calcification. No mediastinal or hilar lymphadenopathy. No axil dangelo lymphadenopathy. Incidental hepatic cysts stable . Adrenal glands are normal. Normal GE junction. Mild thoracic curve. Mild thoracic kyphosis. Endplate Schmorl's nodes in the midthoracic spine. IMPRESSION: CT/CT lung screening [id number] LUNG-RADS: 3-Probably Benign FOLLOW UP: 6 Month LDCT
== END 2023-04-14 14:35 | disposition home or self-care (01) ==
LOC: RAD 14:34
PROVIDERS: PCP Nurse Practitioner; Visit Provider Internal Medicine Pulmonary Disease
DX: Z12.2 Encounter for screening for malignant neoplasm of respiratory organs (principal); Z87.891 Personal history of nicotine dependence
CPT/HCPCS: 71271

== ENCOUNTER → 2023-06-11 12:58 | Outpatient (BNVA) | payer OTHER, SELFPAY | PROVIDERS: PCP Nurse Practitioner; Referring Provider Family Medicine; Visit Provider Specialist | DX: S82.434A Nondisplaced oblique fracture of shaft of right fibula, initial encounter for closed fracture; X58.XXXA Exposure to other specified factors, initial encounter | CPT/HCPCS: 27780; 73590; 73610; 99204 ==

== ENCOUNTER → 2023-07-09 13:18 | Outpatient (BNVA) | payer OTHER, SELFPAY | PROVIDERS: PCP Nurse Practitioner; Visit Provider Specialist | DX: S82.434D Nondisplaced oblique fracture of shaft of right fibula, subsequent encounter for closed fracture with routine healing; X58.XXXD Exposure to other specified factors, subsequent encounter | CPT/HCPCS: 73590; 99024 ==

== ENCOUNTER → 2023-07-30 13:01 | Outpatient (BNVA) | payer OTHER, SELFPAY | PROVIDERS: PCP Nurse Practitioner; Visit Provider Specialist | DX: S82.434D Nondisplaced oblique fracture of shaft of right fibula, subsequent encounter for closed fracture with routine healing; W19.XXXD Unspecified fall, subsequent encounter | CPT/HCPCS: 73590; 99024 ==

== ENCOUNTER → 2023-08-06 12:07 | Outpatient (BNVA) | payer OTHER, SELFPAY | PROVIDERS: PCP Nurse Practitioner; Visit Provider Specialist | DX: R29.90 Unspecified symptoms and signs involving the nervous system (principal); G25.81 Restless legs syndrome; G47.30 Sleep apnea, unspecified | CPT/HCPCS: 99212 ==

== ENCOUNTER 2023-08-25 12:51 | Inpatient (IN) | payer OTHER, SELFPAY ==
[2023-08-25] VITALS (18 sets, daily range): BP systolic 84–129; BP diastolic 47–67; PULSE 71–130; RESP 16–29; TEMP 36.5; O2SAT 91–99; BMI 34.5
--- NOTE | 2023-08-25 12:56 | XR_ITS ---
WS: [id number] Exam: XR chest 1V portable [id number] Date/Time of Exam: 08/25/2023 1:08 PM Reason For Exam: cp Comparison 10/30/2021. The lungs are hyperinflated and clear. Normal cardiomediastinal structures. Unremarkable bony element s. No pleural effusions. IMPRESSION: 1. Pulmonary hyperinflation. No acute process.
--- NOTE | 2023-08-25 13:03 | ED_ITS ---
HPI - Arrhythmia/Palpitations 2 General: Chief Complaint: Shortness of Breath/Dyspnea Stated Complaint: A fib Time Seen by Provider: 08/25/23 12:52 Source: patient and EMS Mode of arrival: EMS Limitations: no limitations History of Present Illness: 67[facility]year-old [facility] said he has been having some palpitations and some mild chest pains for last 2 to 3 days he is found to be in A-fib with RVR there is no history of A-fib he is in A-fib with RVR here with heart rate in the 120s denies any cough or fever denies any pain currently Associated symptoms: Deny nausea or vomiting Review of Systems 2 Const: Denies: fever(s), chills, body aches or change in appetite Eyes: Denies: blurry vision or eye discomfort ENMT: Denies: throat pain or dental pain Card: Reports: chest pain, palpitations and irregular heart rhythm Resp: Denies: dyspnea GI: Denies: abdominal pain, nausea, vomiting or diarrhea : Denies: dysuria Musc: Denies: neck pain or back pain Skin/Breast: Denies: rash Neuro: Denies: headache(s) PFSH ED 2 PFSH: Medical History Barretts esophagus Fracture of right femur following insertion of orthopedic implant PAD (peripheral artery disease) Non-Hodgkin lymphoma in remission Former smoker Hypothyroidism BPH (benign prostatic hyperplasia) Hyperlipidemia COPD (chronic obstructive pulmonary disease) Surgical History History of esophagogastroduodenoscopy (EGD) 11/14/21 Family History Father CAD (coronary artery disease) S/P CABG (coronary artery bypass graft) Hypertension Myocardial infarction Social History Smoking and tobacco/nicotine status: former use of tobacco/nicotine Quit status (tobacco/nicotine): has quit using Year quit tobacco: 2020 Former quit date comment: 1 ppd X 50 years Alcohol intake: former Year of sobriety/quit date alcohol: 2011 Substance/Drug Use: current Substance/Drug use frequency: daily Other substance/drug use details: 4-5 joints/day Physical Exam 2 Const: COMMON NORMALS: patient oriented x3 HENMT: COMMON NORMALS: normocephalic and atraumatic HEAD & SCALP: n ormocephalic and atraumatic Eye: COMMON NORMALS: Equal, round and reactive pupils present and EOMs intact bilaterally PUPIL: Yes Equal, round and reactive pupils present Neck/C-Spine: COMMON NORMALS: full ROM and supple Chest: COMMONS NORMALS: normal inspection of the chest Resp: COMMON NORMALS: normal respiratory effort, No retractions, No use of accessory muscles and clear to auscultation bilaterally AUSCULTATION: clear to auscultation bilaterally Cardio: COMMON NORMALS: No murmurs present (Cardio) RATE: tachycardic R HYTHM: abnormal rhythm irregularly irregular GI: COMMON NORMALS: Normal to inspection, nondistended, normoactive bowel sounds present, Soft to palpation, non-tender and no masses PALPATION: Yes Soft to palpation Extremity: COMMON NORMALS: normal to inspection and full ROM Neuro: COMMON NORMALS: patient oriented x3, moves all extremities and no focal motor deficits Psych: COMMON NORMALS: mental status grossly normal, Normal thought process present and cooperative THOUGHT PROCESS: Normal thought process present Skin: COMMON NORMALS: no rashes or lesions noted and no wounds GENERAL SKIN EXAM: no rashes or lesions noted Course 2 Vital Signs: Vital signs: Vital Signs Temperature 97.7 F 08/25/23 13:33 Pulse Rate 102 H 08/25/23 14:07 Respiratory Rate 19 H 08/25/23 14:07 Blood Pressure 84/56 08/25/23 14:07 Pulse Oximetry 95 08/25/23 14:07 Oxygen Delivery Me thod Room Air 08/25/23 13:37 MDM - Arrhythmia/Palpitations Medical Decision Making Patient presents here with palpitations he is in A-fib with RVR here started on Cardizem originally his blood pressure dropped we will switch him over to amiodarone his heart rate has improved here blood work is normal talk to the hospitalist will admit to cardiac stepdown for new onset A-fib Medical Records I reviewed the patient's medical records. Lab Data I reviewed the patient's lab results. 08/25/23 12:39 08/25/23 13:15 Laboratory Results WBC 6.62 10^3/uL (3.29-11.43) 08/25/23 12:39 RBC 4.82 10^6/uL (3.85-5.65) 08/25/23 12:39 Hgb 14.60 g/dL (11.27-16.99) 08/25/23 12:39 Hct 46.5 % (37-53) 08/25/23 12:39 MCV 96.5 fl (82-101) 08/25/23 12:39 MCH 30.3 pg (27-33) 08/25/23 12:39 MCHC 31.4 g/dL (30-55) 08/25/23 12:39 RDW 16.1 % (12.1-15.1) H 08/25/23 12:39 Plt Count 186 10^3/cmm (157-399) 08/25/23 12:39 MPV 9.0 fL (7.4-10.4) 08/25/23 12:39 Neut % (Auto) 61.7 % 08/25/23 12:39 Lymph % (Auto) 28.7 % 08/25/23 12:39 Robeson % (Auto) 6.8 % 08/25/23 12:39 Eos % (Auto) 1.7 % 08/25/23 12:39 Baso % (Auto) 0.5 % 08/25/23 12:39 Neut # (Auto) 4.09 10^3/uL (1.8-7.7) 08/25/23 12:39 Lymph # (Auto) 1.9 10^3/uL (0.8-4.8) 08/25/23 12:39 Robeson # (Auto) 0.5 10^3/uL (0.2-0.9) 08/25/23 12:39 Eos # (Auto) 0.1 10^3/uL (0.0-0.8) 08/25/23 12:39 Baso # (Auto) 0.0 10^3/uL (0.0-0.1) 08/25/23 12:39 Nucleated RBC % (auto) 0 % 08/25/23 12:39 Nucleated RBCs # 0.0 /100WBC 08/25/23 12:39 PT 13.40 SECONDS (12.1-14.9) 08/25/23 13:15 INR 0.99 (0.8-1.2) 08/25/23 13:15 Sodium 139 mmol/L (136-145) 08/25/23 13:15 Potassium 4.7 mmol/L (3.5-5.1) 08/25/23 13:15 Chloride 104 mmol/L (98-107) 08/25/23 13:15 Carbon Dioxide 25 mmol/L (22-29) 08/25/23 13:15 Anion Gap 14.7 (5-19) 08/25/23 13:15 BUN 23 mg/dL (8-23) 08/25/23 13:15 Creatinine 1.2 mg/dL (0.7-1.2) 08/25/23 13:15 GFR Calculation 60.0 mL/min (90-130) L 08/25/23 13:15 Glucose 113 mg/dL (65-115) 08/25/23 13:15 Calculated Osmolality 292 mOsm/kg (285-295) 08/25/23 13:15 Calcium 9.1 mg/dL (8.5-10.5) 08/25/23 13:15 Total Bilirubin 0.4 mg/dL (0.15-1.2) 08/25/23 13:15 AST 31 U/L (0-40) 08/25/23 13:15 ALT 51 U/L (0-41) H 08/25/23 13:15 Alkaline Phosphatase 77 U/L (40-130) 08/25/23 13:15 Troponin T Baseline 21 ng/L (0-15) H 08/25/23 13:15 Total Protein 7.0 g/dL (6.6-8.7) 08/25/23 13:15 Albumin 4.0 g/dL (3.5-5.2) 08/25/23 13:15 Globulin 3.0 g/dL (1.3-4.6) 08/25/23 13:15 All radiology interpretation(s) finalized by discharge EKG Data EKG 1: I personally reviewed and interpreted this EKG as follows: EKG interpretation date: 08/25/23 EKG interpretation time: 13:03 Interpretation: afib rvr hr [address] or t wave abnormalities qrs 98 qtc 368 Critical Care Time 2 Critical Care Time: Critical Care Time: Yes Total Critical Care Time: 45 Attestation: The high probability of a clinically significant, sudden or life threatening deterioration of the patient's cv system(s) required my full and direct attention, intervention and personal management. The critical care time is as shown. This time is in addition to time spent performing any reported procedures but includes the following: [x] Data and vital sign review and interpretation [x] Patient assessment, examination and intervention [x] Documentation [x] Medication orders and management Discharge Plan Discharge Patient Disposition: Admitted As Inpatient Clinical Impression: Atrial fibrillation with RVR Condition: Stable Coding Level of Care Code ED Occupational Analyst for Callie Mcnamara
--- NOTE | 2023-08-25 13:03 | ECG_ITS ---
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 Measurements Intervals [place] Rate: 109 P: 0 NH: 0 QRS: 92 QRSD: 98 T: 69 QT: 304 QTc: 410 Interpretive Statements ATRIAL FIBRILLATION WITH RAPID VENTRICULAR RESPONSE BORDERLINE RIGHT AXIS DEVIATION [QRS AXIS > 90] ABNORMAL RHYTHM ECG Compared to ECG 10/30/2021 13:57:52 Sinus rhythm no longer present Electronically Signed On 08-25-2023 19:27:42 CDT by Ester Silverio M.D. [id number]
[2023-08-25] MEDS: dilTIAZem 5 mg/mL SDV 5 mL 10 MG IVP (13:15)
[2023-08-25] MEDS: sodium chloride 0.9% 1,000 ML 999 ML IV (13:15)
[2023-08-25 13:22] LABS: Basophils % 0.5 %; Eosinophils # 0.1 10^3/uL (0.0-0.8); Eosinophils % 1.7 %; Hematocrit 46.5 % (37-53); Lymphocytes # 1.9 10^3/uL (0.8-4.8); Lymphocytes % 28.7 %; Mean Corpuscular HGB Conc 31.4 g/dL (30-55); Mean Corpuscular Hemoglobin 30.3 pg (27-33); Mean Corpuscular Volume 96.5 fl (82-101); Monocytes # 0.5 10^3/uL (0.2-0.9); Monocytes % 6.8 %; Neutrophils # 4.09 10^3/uL (1.8-7.7); Neutrophils % 61.7 %; Nucleated Red Blood Cells % 0 %; Platelet Count 186 10^3/cmm (157-399); Red Blood Count 4.82 10^6/uL (3.85-5.65); Red Cell Distribution Width 16.1 % (12.1-15.1); White Blood Count 6.62 10^3/uL (3.29-11.43)
[2023-08-25] MEDS: dilTIAZem 100 MG in sodium chloride 0.9% (add-van) 100 ML IV (13:33)
[2023-08-25 13:46] LABS: INR 0.99 (0.8-1.2)
[2023-08-25 13:52] LABS: Troponin(5th) Baseline 21 ng/L (0-15)
[2023-08-25 13:56] LABS: Alanine Aminotransferase 51 U/L (0-41); Alkaline Phosphatase 77 U/L (40-130); Anion Gap 14.7 (5-19); Aspartate Amino Transferase 31 U/L (0-40); Blood Urea Nitrogen 23 mg/dL (8-23); Calcium 9.1 mg/dL (8.5-10.5); Carbon Dioxide 25 mmol/L (22-29); Chloride 104 mmol/L (98-107); Glucose 113 mg/dL (65-115); Osmolality Calculated 292 mOsm/kg (285-295); Potassium 4.7 mmol/L (3.5-5.1); Sodium 139 mmol/L (136-145); Total Bilirubin 0.4 mg/dL (0.15-1.2)
[2023-08-25] MEDS: amiodarone 150 MG/100 ML PREMIX 400 MG IV (14:21)
--- NOTE | 2023-08-25 14:24 | USCV_ITS ---
Rudy Joe Age: 67 Gender: M : 1955 Exam Date: 08/25/2023 18:14 Ordering Phys: Sung Mabry MD Technologist: JUAN FRANCISCO [place]am [place] [facility] [place] Indication: swelling No history of DVT per patient. HISTORY: swelling No history of DVT per patient. PROCEDURES: Venous duplex imaging was performed in bilateral lower extremities. The following venous structures were evaluated: common femoral vein, profunda vein, proximal portion of the greater saphenous vein, superficial femoral vein, and the popliteal vein. In addition, the posterior tibial and peroneal veins were evaluated. Serial compression, augmentation maneuvers, and spectral Doppler flow evaluation were performed, which were normal. Bilaterally, the common femoral, superficial femoral, profunda femoral, popliteal, posterior tibial, greater saphenous veins, and the peroneal veins were identified and interrogated in the standard fashion. These veins were found to be easily compressible with spontaneous blood flow. No evidence of thrombus noted. CONCLUSIONS No evidence of right lower extremity DVT. No evidence of left lower extremity DVT. Donavon Guo MD (Electronically Signed) Final Date: 26 August 2023 09:11 S
--- NOTE | 2023-08-25 14:24 | USCV_ITS ---
Rudy Joe Age: 67 Gender: M : 1955 Exam Date: 08/25/2023 18:43 Ordering Phys: Sung Mabry MD Technologist: JUAN FRANCISCO Exam Location: [facility] [place] Indication: atrial fibrillation, palpitations, weakness. No history of cardiac intervention per patient. BP: 96 / 51 HR: 102 Rhythm: Atrial fibrillation, erratic rhythm Technical Quality: Adequate MEASUREMENTS (Male / Female) Normal Values 2D ECHO LV Diastolic Diameter PLAX 5.5 cm 4.2 - 5.9 / 3.9 - 5.3 cm IVS Diastolic Thickness 1.1 cm 0.6 - 1.0 / 0.6 - 0.9 cm IVS Systolic Thickness 1.4 cm LVPW Diastolic Thickness 1.3 cm 0.6 - 1.0 / 0.6 - 0.9 cm LVPW Systolic Thickness 1.8 cm LVOT Diameter 2.7 cm LV Ejection Fraction 2D Teich 58.8 % LV Ejection Fraction MOD 2C 44.3 % LV Ejection Fraction 2C AL 45.4 % LA Diameter 3.9 cm LA Sys Volume AL 78.3 cm cubed LA Sys Volume Index AL 33.9 cm cubed/m squared Aorta at Sinotubular Diameter 2.9 cm IVC Diameter 2.7 cm M-MODE LA Ao Ratio MM 1.2 AV Cusp Separation MM 1.2 cm DOPPLER AV Peak Velocity 233.0 cm/s LVOT Peak Velocity 55.0 cm/s AV Area Cont Eq vti 0.8 cm squared AV Area Cont Eq pk 0.9 cm squared MV Peak Velocity 113.0 cm/s MV Area PHT 5.5 cm squared Mitral E to A Ratio 0.0 TV Peak Velocity 222.5 cm/s TR Peak Velocity 232.0 cm/s TR Peak Gradient 21.5 mmHg TV Peak E Velocity 32.0 cm/s Right Atrial Pressure 3.0 mmHg Pulmonary Artery Systolic Pressu 24.5 mmHg PV Peak Velocity 81.0 cm/s FINDINGS Left Ventricle Left ventricle is normal in size. LV systolic function is moderately reduced with EF of 35-40%. Moderate global hypokinesis. Right Ventricle RV is mild to moderately hypokinetic Right Atrium Normal in size Left Atrium Dilated Mitral Valve Structurally normal mitral valve. Mild mitral regurgitation. Aortic Valve Aortic valve is thickened. Mild to moderate aortic stenosis with mean gradient of 11mmHg. Valve area is 1.1cm2 Tricuspid Valve Mild tricuspid regurgitation. Pulmonary artery systolic pressure is normal. Pulmonic Valve Not well-visualized. Pericardium Normal Aorta Normal in size IVC Appears dilated CONCLUSIONS LV systolic function is moderately reduced with EF of 35 to 40%. RV is mild to moderately hypokinetic. Left atrial dilation seen. Mild mitral regurgitation. Mild to moderate aortic stenosis with aortic valve area of 1.1 cm squared and mean gradient of 11 mmHg. Mild tricuspid regurgitation. IVC is dilated. Compared to prior echocardiogram from 2021, LV systolic function has decreased significantly. Isra Reyes MD (Electronically Signed) Final Date: 26 August 2023 07:11 S
--- NOTE | 2023-08-25 14:25 | P.HP_ITS ---
Providers/Chief Complaint 2 Primary Care Provider: ANGELINA Valadez Chief Complaint: A fib History of Present Illness Rudy Joe is a 67 year old male with a past medical history of non-Hodgkin's lymphoma, involving left axilla, status post surgical intervention, and radiation therapy to the chest peripheral vascular disease, hypothyroidism, hyperlipidemia, borderline diabetes, history of COPD, prior history of smoking, history of aortic stenosis, who presents [facility] due to chest palpitations, fatigue, malaise, feeling unwell. 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, he had recently taken a load all the way to [place] when he started feeling unwell, felt extremely exhausted and fatigued, so he turned around and came back and went to the [place], at the [place] he was found to have concerns for tachycardia, concerns for A-fib to be sent to [facility] for evaluation, here he was found to have A-fib with RVR placed on Cardizem drip however developed hypotension, Cardizem drip has been stopped, plans on amiodarone with amiodarone bolus, currently he is alert oriented x 4, follows all commands, heart rates are in the 140s, blood pressures 90s over 60s, denies any fevers, no chills, no cough denies any alcoholism, does report smoking in the past but quit sometime ago, denies any IV drug use, denies any other drug use except marijuana, does report drinking a lot of Pepsi, no other caffeine, no energy drinks, no calf pain, no hemoptysis, no sudden onset shortness of breath, does report mild chest discomfort at times Review of Systems 2 Const: Denies: fever(s) or chills Card: Reports: chest pain and palpitations Resp: Denies: dyspnea GI: Denies: abdominal pain : Denies: flank pain Neuro: Denies: headache(s) Medications/Allergies Home Medications Medication Instructions Recorded Confirmed Last Taken Type albuterol sulfate 90 mcg/actuation 1 inh inhalation QID PRN shortness 09/28/21 08/25/23 11/13/21 Rx aerosol inhaler (ProAir HFA) of breath or wheezing #6.7 grams atorvastatin 10 mg tablet 10 mg PO DAILY #30 tabs 09/28/21 08/25/23 08/25/23 Rx tamsulosin 0.4 mg capsule 0.4 mg PO TID 09/28/21 08/25/23 08/25/23 History fluticasone 250 mcg-salmeterol 50 1 inh inhalation Q12H 30 days #60 05/27/22 08/25/23 08/25/23 Rx mcg/dose blistr powdr for ea inhalation (Wixela Inhub) tiotropium bromide 2.5 2 puff inhalation DAILY #4 grams 05/27/22 08/25/23 08/25/23 Rx mcg/actuation mist for inhalation (Spiriva Respimat) ropinirole 3 mg tablet 3 mg PO TID #270 tabs 08/06/23 08/25/23 08/25/23 Rx diphenhydramine HCl 25 mg capsule 25 mg PO QPM 08/25/23 08/25/23 08/24/23 History (Sleep Aid (diphenhydramine)) levothyroxine 50 mcg tablet 50 mcg PO DAILY 08/25/23 08/25/23 08/25/23 History Allergies Allergy/AdvReac Type Severity Reaction Status Date / Time No Known Allergies Allergy Verified 08/25/23 13:19 PFSH Acute 2 PFSH: Medical History Barretts esophagus Fracture of right femur following insertion of orthopedic implant PAD (peripheral artery disease) Non-Hodgkin lymphoma in remission Former smoker Hypothyroidism BPH (benign prostatic hyperplasia) Hyperlipidemia COPD (chronic obstructive pulmonary disease) Surgical History History of esophagogastroduodenoscopy (EGD) 11/14/21 Family History Father CAD (coronary artery disease) S/P CABG (coronary artery bypass graft) Hypertension Myocardial infarction Social History Smoking and tobacco/nicotine status: former use of tobacco/nicotine Quit status (tobacco/nicotine): has quit using Year quit tobacco: 2020 Former quit date comment: 1 ppd X 50 years Alcohol intake: former Year of sobriety/quit date alcohol: 2011 Substance/Drug Use: current Substance/Drug use frequency: daily Other substance/drug use details: 4-5 joints/day Vitals/I&O/Wt Last Vital Signs Temp 97.7 F 08/25/23 13:33 Pulse 102 H 08/25/23 14:07 Resp 19 H 08/25/23 14:07 BP 84/56 08/25/23 14:07 Pulse Ox 95 08/25/23 14:07 O2 Del Method Room Air 08/25/23 13:37 Weight last 48 hrs Weight 106.141 kg Physical Exam 2 Const: COMMON NORMALS: no acute distress and patient oriented x3 HENMT: COMMON NORMALS: normocephalic HEAD & SCALP: normocephalic Eye: COMMON NORMALS: Equal, round and reactive pupils present and EOMs intact bilaterally Neck/C-Spine: COMMON NORMALS: no JVD Resp: COMMON NORMALS: normal respiratory effort, No retractions, No use of accessory muscles and clear to auscultation bilaterally AUSCULTATION: clear to auscultation bilaterally Cardio: COMMON NORMALS: no JVD, S1 normal heart sound present and S2 normal heart sound present RATE: tachycardic RHYTHM: abnormal rhythm HEART SOUNDS: S1 normal heart sound present and S2 normal heart sound present GI: COMMON NORMALS: Normal to inspection, nondistended, normoactive bowel sounds present, Soft to palpation and non-tender Extremity: COMMON NORMALS: no calf tenderness and no pedal edema Neuro: COMMON NORMALS: patient oriented x3, CN's II-XII intact bilaterally and moves all extremities Psych: COMMON NORMALS: mental status grossly normal Data 08/25/23 12:39 08/25/23 13:15 A&P Assessment and plan (1) Atrial fibrillation with RVR: (2) PAD (peripheral artery disease): (3) Hyperlipidemia: (4) Hypothyroidism: (5) BPH (benign prostatic hyperplasia): (6) Restless legs syndrome (RLS): (7) COPD (chronic obstructive pulmonary disease): (8) Goals of care, counseling/discussion: Plan A-fib with RVR ? Developing hypotension, tachycardia with Cardizem ? Switch to amiodarone ? Will check TSH, mag, cardiac echo, does have a history of her aortic stenosis ? Serial EKGs concern for possible telemetry monitoring ? Chads 2 Vascor 2, start heparin drip ? Check A1c, drug screen, alcohol level ? History of smoking recently quit -Has history of COPD ? History of severe insomnia, will start him on Restoril tonight as he has had an adverse reaction to Ambien before # Hyperlipidemia # Hypothyroidism # Peripheral vascular disease Patient is a DNR/DNI, confirmed with patient multiple times, he does not want cpr, does not want to be put on a ventilator he is okay with electrocardioversion if he requires it for converting him out of abnormal rhythms such as severe A-fib with RVR, is okay with drugs per ACLS, but does not want chest compressions, confirmed this with patient multiple times patient's at bedside Attestations 2 Medical Necessity Statement*: Patient requires hospitalization, inpatient, greater than 2 midnights, for A-fib with RVR Diagnoses Atrial fibrillation with RVR I48.91 PAD (peripheral artery disease) I73.9 Hyperlipidemia E78.5 Hypothyroidism E03.9 BPH (benign prostatic hyperplasia) N40.0 Restless legs syndrome (RLS) G25.81 COPD (chronic obstructive pulmonary disease) J44.9 Goals of care, counseling/discussion Z71.89
[2023-08-25 14:47] LABS: Magnesium 2.1 mg/dL (1.7-2.3); NT Pro B Type Natriuretic Pept 4806 pg/mL (0-125); Thyroid Stimulating Hormone 6.35 uIU/mL (0.27-4.20)
[2023-08-25 14:56] LABS: ABG PCO2 42.3 mmHg (35-45); ABG PH Result 7.38 (7.35-7.45); Arterial Blood Gas Hematocrit 43.1 % (42-52); Base Excess ABG -0.1 mmol/L (-2.0-2.0); Blood Gas Allen Test Pos; Blood Gas Operator Identificat WALCI; Blood Gas Sample Site Radial, left; Blood Gas Sample Type Arterial; HCO3 ABG 25.1 mmol/L (22-26); Oxygen Device ROOM AIR; PO2 ABG 70.1 mmHg (80.0-100.0); PO2 FiO2 Ratio Arterial Blood 0
[2023-08-25 14:56] LABS: Estmated Average Glucose 131; Hemoglobin A1C 6.2 % (4.0-6.0)
--- NOTE | 2023-08-25 14:56 | ECG_ITS ---
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 Measurements Intervals [place] Rate: 90 P: 0 VA: 0 QRS: 90 QRSD: 107 T: 77 QT: 386 QTc: 473 Interpretive Statements ATRIAL FIBRILLATION NONSPECIFIC T-WAVE ABNORMALITY ABNORMAL RHYTHM ECG Compared to ECG 08/25/2023 13:03:12 T-wave abnormality now present Electronically Signed On 08-25-2023 19:37:31 CDT by Ester Silverio M.D. [email or web address] [email or web address] [email or web address]/[id number] f
[2023-08-25 14:57] LABS: Alcohol Level < 10 mg/dL (0-10); Lactic Sepsis W/Reflex 1.6 mmol/L (0.5-2.2)
[2023-08-25 15:03] LABS: D Dimer 0.62 ug/mLFEU (0-0.59)
[2023-08-25 15:04] LABS: Procalcitonin 0.07 ng/mL (0-0.5)
[2023-08-25 15:46] LABS: Troponin 5 2HR 16.24 ng/L (0-15)
[2023-08-25 15:51] LABS: Troponin 5 2HR Delta -4.76 ABS# (0-10)
--- NOTE | 2023-08-25 18:56 | ECG_ITS ---
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 Measurements Intervals [place] Rate: 100 P: 0 SC: 0 QRS: 85 QRSD: 103 T: 58 QT: 354 QTc: 457 Interpretive Statements ATRIAL FIBRILLATION WITH RAPID VENTRICULAR RESPONSE Compared to ECG 08/25/2023 15:50:48 T-wave abnormality no longer present Electronically Signed On 08-26-2023 12:31:48 CDT by Isra Reyes M.D. [id number]
[2023-08-25] MEDS: tamsulosin 0.4 mg Capsule 0.400000000000000022 MG PO (20:02)
[2023-08-25] MEDS: pantoprazole 40 mg SDV IVP (20:02)
[2023-08-25] MEDS: ropinirole 2 mg Tablet 3 MG PO (20:02)
[2023-08-25] MEDS: heparin drip 25,000 UNIT/500 ML PREMIX 29.7199999999999989 UNIT IV (20:53)
[2023-08-25] MEDS: heparin 5,000 unit/mL INJ 1 mL IV (20:57)
[2023-08-25 21:15] LABS: Chol HDL Ratio 3.52 mg/dL (1.0-5.00); Cholesterol 95 mg/dL (0-200); HDL Cholesterol 27 mg/dL (60-100); LDL Cholesterol Calculated 43 mg/dL (50-129); LDL HDL Ratio 1.59 RATIO (0.00-3.22); Triglycerides 126 mg/dL (0-150)
[2023-08-25 21:17] LABS: Troponin 5 6HR 17.31 ng/L (0-15)
[2023-08-25 21:21] LABS: Troponin 5 6HR Delta -3.69 ng/L (0-12)
[2023-08-26] VITALS (30 sets, daily range): BP systolic 80–100; BP diastolic 55–67; PULSE 67–136; RESP 20–29; TEMP 36.6–37.1; O2SAT 91–97; BMI 34.5
[2023-08-26] MEDS: temazepam 15 mg Capsule PO (00:52)
[2023-08-26 04:15] LABS: Basophils % 0.3 %; Eosinophils # 0.2 10^3/uL (0.0-0.8); Hematocrit 41.5 % (37-53); Lymphocytes # 2.2 10^3/uL (0.8-4.8); Lymphocytes % 29.8 %; Mean Corpuscular HGB Conc 32.5 g/dL (30-55); Mean Corpuscular Hemoglobin 29.9 pg (27-33); Mean Platelet Volume 9.4 fL (7.4-10.4); Monocytes # 0.4 10^3/uL (0.2-0.9); Monocytes % 5.7 %; Neutrophils # 4.59 10^3/uL (1.8-7.7); Neutrophils % 61.8 %; Nucleated Red Blood Cells % 0 %; Platelet Count 176 10^3/cmm (157-399); Red Blood Count 4.51 10^6/uL (3.85-5.65); Red Cell Distribution Width 15.9 % (12.1-15.1); White Blood Count 7.42 10^3/uL (3.29-11.43)
[2023-08-26 04:24] LABS: Partial Thromboplastin Time 123.7 SECONDS (23.9-36.7)
[2023-08-26 04:26] LABS: Alanine Aminotransferase 47 U/L (0-41); Albumin Level 3.5 g/dL (3.5-5.2); Alkaline Phosphatase 67 U/L (40-130); Anion Gap 13.5 (5-19); Aspartate Amino Transferase 29 U/L (0-40); Blood Urea Nitrogen 24 mg/dL (8-23); Calcium 8.4 mg/dL (8.5-10.5); Carbon Dioxide 25 mmol/L (22-29); Chloride 107 mmol/L (98-107); Glomerular Filtration Rate 50.2 mL/min (90-130); Glucose 94 mg/dL (65-115); Magnesium 1.9 mg/dL (1.7-2.3); Osmolality Calculated 296 mOsm/kg (285-295); Phosphorus 4.2 mg/dL (2.5-4.5); Potassium 4.5 mmol/L (3.5-5.1); Sodium 141 mmol/L (136-145); Total Bilirubin 0.2 mg/dL (0.15-1.2); Total Protein 6.5 g/dL (6.6-8.7)
[2023-08-26 06:19] LABS: Amphetamines Screen Urine Negative (Negative); Barbiturates Screen Urine Negative (Negative); Benzodiazepines Screen Urine Negative (Negative); Cocaine Screen Urine Negative (Negative); Opiate Screen Urine Negative (Negative); PCP Screen Urine Negative (Negative); THC Screen Urine Positive (Negative)
--- NOTE | 2023-08-26 09:24 | PC.CHAP ---
Pastoral Care Encounter/Spiritual Assessment Type of Contact [] Declined machinery erector visit [] Patient/Family/Request visit [] Outpatient visit [] Follow-up visit [] Physician referral [] Code/Alert [] Routine visit [] Staff referral [] Actively dying [] Patient sleeping [] Family support [] [] Out of room [] Palliative care [] [x] Receiving care in room [] Pre-surgical visit [] Trauma [] Long length of stay [] ICU visit [] Other: Relational/Emotional Strength [] Patient feels connected with others/family/visitors/staff [] Distress [] Loneliness/isolation [] Abandonment Spirituality of Patient [] Person of Rasheeda [] Attends Druze of their Rasheeda [] Believes in Prayer [] Reads Bible or Mu-Ism materials [] There are Spiritual issues to be addressed Controls Technician Interventions [] Prayer [] Active listening [] Non-anxious presence [] Spiritual/emotional support [] Crisis/trauma care [] Spiritual counseling [] Bereavement support [] Provided bereavement packet [] Provided Bible/devotional materials [] Provided toy/stuffed animal, coloring book to patient or family member [] Provided Communion [] Anointing/[place] [] Salvation [] Completed spiritual assessment [] Other: Impact on Illness or Injury [] Angry [] Fearful [] Anxious [] Often cries [] Exhaustion [] Unable to work [] Unable to attend uatsdin [] Unable to walk/stand [] Unable to read [] Unable to drive [] Unable to eat/drink [] Unable to sleep [] Unable to be with family [] Patient intubated [] Other: Summary Time spent with patient
--- NOTE | 2023-08-26 09:40 | PC.NURSE ---
Physician Orders: Xanax 0.5mg TID PRN for anxiety
[2023-08-26] MEDS: levothyroxine 50 mcg Tablet PO (09:44)
[2023-08-26] MEDS: amiodarone 200 mg Tablet 400 MG PO ×2 (09:44→17:10)
[2023-08-26] MEDS: ALPRAZolam 0.5 mg Tablet PO (09:52)
[2023-08-26 11:33] LABS: Partial Thromboplastin Time 61.5 SECONDS (23.9-36.7)
[2023-08-26 12:52] LABS: Add Urine Culture? No; Add Urine Microscopic? YES; Amorphous Sediment Urine 4+ /hpf; Bilirubin Urine Neg (Negative); Blood Urine Neg (Negative); Glucose Urine UA Norm (Normal); Ketones Urine 1+ (Negative); Leukocyte Esterase Urine Negative (Negative); Nitrate Urine Negative (Negative); Protein Urine Neg (Negative); Specific Gravity, Urine 1.025 (1.005-1.030); Urine Appearance Cloudy (CLEAR); Urine Color Yellow (Yellow); Urobilinogen Urine Neg (Negative); pH Urine 5 (5-7)
--- NOTE | 2023-08-26 13:14 | ECG_ITS ---
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 Interpretive Statements NAME OF STUDY: LEXISCAN SESTAMIBI STRESS TEST INDICATION: Nstemi, PROCEDURE: At the baseline, the EKG revealed atrial fibrillation with a rapid ventricular rate of 107 bpm. The baseline heart was 107 bpm with a blood pressue of 109/39 mm of Hg Lexiscan was infused over a period of 20 seconds. A total of 0.4 milligrams of Lexiscan was infused. The stress phase was continued for a total of 5 minutes. Heart rate at the end of the stress phase was 114 bpm with a blood pressure 161/64 mm of Hg. The EKG at the peak infusion revealed no significant changes. Sestamibi was injected 20 seconds after the Lexiscan infusion. Heart rate at the end of the recovery phase was 112 bpm with a blood pressure of 113/59 mm of Hg. CONCLUSION: 1. No significant EKG changes with the LexiScan infusion 2. No LexiScan induced chest pain or cardiac arrhythmia 3. Normal blood pressure and heart rate response 4. Sestamibi/sestamibi perfusion scan pending; see separate report. Electronically Signed On 09-08-2023 13:36:23 CDT by Ester Silverio M.D. [id number]
--- NOTE | 2023-08-26 14:10 | P.PN_ITS ---
Subjective 2 Subjective: Patient was seen this morning continues to be in A-fib with RVR heart rates as high as 120s, does report intermittent shortness of breath no chest pain this morning, I did detailed discussion about his persistent A-fib with RVR he will require further titration here in the hospital, we discussed his echocardiogram findings EF down to 30%, no personal history of CAD, we discussed doing a stress test tomorrow, patient stated really wants to go home he tells me want to go home today, discussed morbidity mortality going home with his EF down to 30% and currently being in A-fib with RVR we need to titrate his heart rates, get them reasonable we have to get him up out of bed at physical therapy work with him see what his heart rates do, we need to do stress testing, discussed morbidity mortality associate with A-fib with RVR, CAD, cardiac event, cardiac arrest, he voiced understanding, all questions answered, agreed to stay in the hospital Vitals/I&O/Wt Last Vital Signs Temp 97.8 F 08/26/23 11:42 Pulse 96 08/26/23 11:42 Resp 20 H 08/26/23 11:42 BP 100/60 08/26/23 11:42 Pulse Ox 92 08/26/23 11:42 O2 Del Method Room Air 08/26/23 11:42 08/25/23 08/26/23 08/26/23 22:59 06:59 14:59 Intake Total 213.312 / 313.312 255.592 / 568.904 302.512 / 302.512 Balance 213.312 / 313.312 255.592 / 568.904 302.512 / 302.512 Weight last 48 hrs Weight 106.141 kg Weight 106.141 kg Weight 106.141 kg Physical Exam 2 Const: COMMON NORMALS: no acute distress and patient oriented x3 Resp: COMMON NORMALS: normal respiratory effort, No retractions, No use of accessory muscles and clear to auscultation bilaterally AUSCULTATION: clear to auscultation bilaterally Cardio: COMMON NORMALS: S1 normal heart sound present and S2 normal heart sound present RATE: tachycardic RHYTHM: abnormal rhythm HEART SOUNDS: S 1 normal heart sound present and S2 normal heart sound present GI: COMMON NORMALS: Normal to inspection, nondistended, normoactive bowel sounds present and non-tender Extremity: COMMON NORMALS: no pedal edema Neuro: COMMON NORMALS: patient oriented x3 Psych: COMMON NORMALS: mental status grossly normal Data 08/26/23 03:08 08/26/23 03:08 A&P Assessment and plan (1) Atrial fibrillation with RVR: (2) PAD (peripheral artery disease): (3) Hyperlipidemia: (4) Hypothyroidism: (5) BPH (benign prostatic hyperplasia): (6) Restless legs syndrome (RLS): (7) COPD (chronic obstructive pulmonary disease): (8) Goals of care, counseling/discussion: (9) Systolic CHF, acute: Plan A-fib with RVR ? Developing hypotension, tachycardia with Cardizem ? Switch to amiodarone ? On amiodarone drip transition to amiodarone 400 twice daily ? Serial EKGs concern for possible telemetry monitoring ? Chads 2 Vascor 2, start heparin drip -Echo shows EF to 30 to 35%, with right ventricular hypokinesis n.p.o. midnight, for cardiac stress test tomorrow ? Does appear to be fluid overloaded 1 dose IV Lasix ? Prediabetes ? History of smoking recently quit -Has history of COPD ? History of severe insomnia, will start him on Restoril tonight as he has had an adverse reaction to Ambien before # Hyperlipidemia # Hypothyroidism # Peripheral vascular disease Patient is a DNR/DNI, confirmed with patient multiple times, he does not want cpr, does not want to be put on a ventilator he is okay with electrocardioversion if he requires it for converting him out of abnormal rhythms such as severe A-fib with RVR, is okay with drugs per ACLS, but does not want chest compressions, confirmed this with patient multiple times patient's at bedside Plan for today remains on amiodarone drip, transition to p.o. amiodarone, spoke to cardiology about patient's EF down to 30 to 35%, will keep n.p.o. over midnight, plan on cardiac stress test tomorrow morning, does appear to be fluid overloaded 1 dose IV Lasix continue to monitor heart rates Attestations 2 Medical Necessity Statement*: Patient requires hospitalization for systolic CHF new onset with diminished ejection fraction, right ventricular hypokinesia, A-fib with RVR, fluid overload Diagnoses Atrial fibrillation with RVR I48.91 PAD (peripheral artery disease) I73.9 Hyperlipidemia E78.5 Hypothyroidism E03.9 BPH (benign prostatic hyperplasia) N40.0 Restless legs syndrome (RLS) G25.81 COPD (chronic obstructive pulmonary disease) J44.9 Goals of care, counseling/discussion Z71.89 Systolic CHF, acute I50.21
[2023-08-26] MEDS: FUROsemide 10 mg/mL SDV 4mL 40 MG IVP (14:26)
[2023-08-26] MEDS: ropinirole 2 mg Tablet 3 MG PO ×2 (14:27→22:16)
[2023-08-26 18:07] LABS: Partial Thromboplastin Time 43.3 SECONDS (23.9-36.7)
[2023-08-26 18:08] LABS: Blood Urea Nitrogen 24 mg/dL (8-23); Calcium 8.7 mg/dL (8.5-10.5); Carbon Dioxide 26 mmol/L (22-29); Chloride 103 mmol/L (98-107); Creatinine Clr Calc Pharmacy 64.3827; Glomerular Filtration Rate 54.7 mL/min (90-130); Glucose 114 mg/dL (65-115); Osmolality Calculated 295 mOsm/kg (285-295); Sodium 140 mmol/L (136-145)
[2023-08-26 18:12] LABS: Anion Gap 15.1 (5-19); Potassium 4.1 mmol/L (3.5-5.1)
[2023-08-26] MEDS: heparin drip 25,000 UNIT/500 ML PREMIX 22 UNIT IV (18:17)
[2023-08-26] MEDS: heparin 5,000 unit/mL INJ 1 mL IV (18:17)
[2023-08-26] MEDS: pantoprazole 40 mg SDV IVP (20:03)
[2023-08-26] MEDS: atorvastatin 40 mg Tablet 20 MG PO (22:17)
[2023-08-26] MEDS: tamsulosin 0.4 mg Capsule 0.400000000000000022 MG PO (22:17)
[2023-08-26] MEDS: temazepam 15 mg Capsule 30 MG PO (22:36)
[2023-08-26 23:51] LABS: Partial Thromboplastin Time 67.8 SECONDS (23.9-36.7)
[2023-08-27] VITALS (10 sets, daily range): BP systolic 87–114; BP diastolic 49–78; PULSE 75–127; RESP 14–32; TEMP 36.4–36.9; O2SAT 93–97; BMI 34.5
[2023-08-27 07:38] LABS: Basophils % 0.6 %; Eosinophils # 0.1 10^3/uL (0.0-0.8); Eosinophils % 1.9 %; Hematocrit 42.4 % (37-53); Lymphocytes # 1.9 10^3/uL (0.8-4.8); Lymphocytes % 27.7 %; Mean Corpuscular HGB Conc 32.8 g/dL (30-55); Mean Corpuscular Hemoglobin 30.5 pg (27-33); Mean Corpuscular Volume 93.2 fl (82-101); Mean Platelet Volume 9.3 fL (7.4-10.4); Monocytes # 0.4 10^3/uL (0.2-0.9); Monocytes % 6.1 %; Neutrophils # 4.26 10^3/uL (1.8-7.7); Neutrophils % 63.3 %; Nucleated Red Blood Cells % 0 %; Platelet Count 158 10^3/cmm (157-399); Red Blood Count 4.55 10^6/uL (3.85-5.65); Red Cell Distribution Width 15.9 % (12.1-15.1); White Blood Count 6.74 10^3/uL (3.29-11.43)
[2023-08-27 07:52] LABS: Anion Gap 13.4 (5-19); Blood Urea Nitrogen 23 mg/dL (8-23); Calcium 8.5 mg/dL (8.5-10.5); Carbon Dioxide 27 mmol/L (22-29); Chloride 101 mmol/L (98-107); Creatinine Clr Calc Pharmacy 55.7984; Glomerular Filtration Rate 46.4 mL/min (90-130); Glucose 121 mg/dL (65-115); Osmolality Calculated 289 mOsm/kg (285-295); Partial Thromboplastin Time 72.6 SECONDS (23.9-36.7); Potassium 4.4 mmol/L (3.5-5.1); Sodium 137 mmol/L (136-145)
[2023-08-27] MEDS: atorvastatin 40 mg Tablet 20 MG PO (08:10)
[2023-08-27] MEDS: amiodarone 200 mg Tablet 400 MG PO ×2 (08:11→17:44)
[2023-08-27] MEDS: levothyroxine 50 mcg Tablet PO (08:11)
[2023-08-27] MEDS: ropinirole 2 mg Tablet 3 MG PO ×3 (08:11→20:26)
[2023-08-27] MEDS: tamsulosin 0.4 mg Capsule 0.400000000000000022 MG PO ×2 (08:11→17:44)
[2023-08-27] MEDS: regadenoson 0.4 Mg/5 ml Syringe 0.400000000000000022 MG IVP (09:10)
--- NOTE | 2023-08-27 09:43 | PC.SOCIAL ---
IMM Update Pg. 2 of IMM updated and left at bedside. Patient currently off unit.
[2023-08-27] MEDS: ALPRAZolam 0.5 mg Tablet PO (13:14)
--- NOTE | 2023-08-27 13:14 | NMCV_ITS ---
NM nikki perf SPECT r/s* [id number] Rudy Joe Age: 67 Gender: M : 1955 Exam Date: 08/27/2023 08:26 Ordering Phys: Sung Mabry MD Technologist: GENOVEVA Peters Exam Location: [facility] Indications: CHEST PAIN STRESS TEST [facility] IMAGE PROTOCOL Rest/Stress 1 Lexiscan Day Radiopharmaceutical Dose (mCi) Administration Site Administered by Rest: Tc-99m 11.0 IV GENOVEVA Peters Sestamibi Stress:Tc-99m 32.7 IV GENOVEVA Galeas Sestamibi Rest: 60 Discovery 630 Stress: 30 Discovery 630 0.4mg Lexiscan. Images obtained in supine and prone position. SPECT RESULTS Technical Quality: Excellent Raw Data Analysis: Normal Image Corrections: No attenuation or motion correction applied Summed Stress Score: 1 Summed Rest Score: 2 Summed Difference Score: 0 PERFUSION FINDINGS A small area of slightly decreased tracer uptake was noted in the mid inferior wall region, with no significant reversibility FUNCTIONAL RESULTS (calculated via Gated SPECT) Stress Image LV EF (%): 34 Stress EDV (mL):106 TID: 0.91 Stress ESV (mL):70 FUNCTIONAL FINDINGS: Segmental wall motion analysis revealed diffuse hypokinesia of the left ventricle LV cavity was found to be mildly dilated IMPRESSIONS 1. Myocardial perfusion imaging revealing small area of persistent decreased tracer uptake involving the mid inferior wall region suggestive of myocardial scarring versus attenuation artifact 2. Normal moderately diminished LV ejection fraction of 34%. 3. LV wall motion analysis revealed diffuse hypokinesia of the left ventricle 4. Mildly dilated LV cavity with end-systolic volume was 70 ml The above features may suggest a nonischemic form of cardiomyopathy. Clinical correlation is recommended Dr Ester Silverio MD FACC (Electronically Signed) Final Date: 27 August 2023 13:39 S
--- NOTE | 2023-08-27 13:24 | P.PN_ITS ---
Subjective 2 Subjective: Patient was seen this morning in the stress lab, no chest pain, no shortness of breath, we discussed following his stress testing potentially discussing with cardiology, his creatinine is up to 1.5 will need to monitor, blood pressures remain soft I am worried about his low EF, Vitals/I&O/Wt Last Vital Signs Temp 97.6 F 08/27/23 12:00 Pulse 109 H 08/27/23 12:00 Resp 24 H 08/27/23 12:00 BP 97/50 08/27/23 12:00 Pulse Ox 97 08/27/23 12:00 O2 Del Method Room Air 08/27/23 12:00 08/26/23 08/27/23 08/27/23 22:59 06:59 14:59 Intake Total 474 / 1116.512 Balance 474 / 1116.512 Weight last 48 hrs Weight 106.141 kg Weight 106.141 kg Weight 106.141 kg Physical Exam 2 Const: COMMON NORMALS: no acute distress and patient oriented x3 Neck/C-Spine: COMMON NORMALS: no JVD Resp: COMMON NORMALS: normal respiratory effort, No retractions, No use of accessory muscles and clear to auscultation bilaterally AUSCULTATION: clear to auscultation bilaterally Cardio: COMMON NORMALS: no JVD, regular rate, S1 normal heart sound present and S2 normal heart sound present RATE: regular rate RHYTHM: abnormal rhythm HEART SOUNDS: S1 normal heart sound present and S2 normal heart sound present GI: COMMON NORMALS: Normal to inspection, nondistended, normoactive bowel sounds present and non-tender Extremity: COMMON NORMALS: no pedal edema Neuro: COMMON NORMALS: patient oriented x3 Psych: COMMON NORMALS: mental status grossly normal Data 08/27/23 07:10 08/27/23 07:10 A&P Assessment and plan (1) Atrial fibrillation with RVR: (2) PAD (peripheral artery disease): (3) Hyperlipidemia: (4) Hypothyroidism: (5) BPH (benign prostatic hyperplasia): (6) Restless legs syndrome (RLS): (7) COPD (chronic obstructive pulmonary disease): (8) Goals of care, counseling/discussion: (9) Systolic CHF, acute: Plan A-fib with RVR ? Developing hypotension, tachycardia with Cardizem - amiodarone 400 twice daily -Blood pressures remain soft, suspect it is related to low ejection fraction we will have to talk to cardiology, potentially consider Entresto ? Serial EKGs concern for possible telemetry monitoring ? Chads 2 Vascor 2, heparin drip -Echo shows EF to 30 to 35%, with right ventricular hypokinesis n.p.o. , for cardiac stress test tomorrow ? Creatinine 1.5, hold off on IV diuresis ? Prediabetes ? History of smoking recently quit -Has history of COPD ? History of severe insomnia, will start him on Restoril tonight as he has had an adverse reaction to Ambien before # Hyperlipidemia # Hypothyroidism # Peripheral vascular disease Patient is a DNR/DNI, confirmed with patient multiple times, he does not want cpr, does not want to be put on a ventilator he is okay with electrocardioversion if he requires it for converting him out of abnormal rhythms such as severe A-fib with RVR, is okay with drugs per ACLS, but does not want chest compressions, confirmed this with patient multiple times patient's at bedside Plan for today r monitor creatinine up to 1.5, monitor hypotension blood pressures remain soft, watch atrial fibrillation, heart rates do go into the 110s, on amiodarone 400 twice daily, blood pressures precluding additional medications, will await stress testing speak to cardiology about results Attestations 2 Medical Necessity Statement*: Patient requires hospitalization for A-fib with RVR soft blood pressures diminished ejection fraction on echo, Diagnoses Atrial fibrillation with RVR I48.91 PAD (peripheral artery disease) I73.9 Hyperlipidemia E78.5 Hypothyroidism E03.9 BPH (benign prostatic hyperplasia) N40.0 Restless legs syndrome (RLS) G25.81 COPD (chronic obstructive pulmonary disease) J44.9 Goals of care, counseling/discussion Z71.89 Systolic CHF, acute I50.21
[2023-08-27 15:42] LABS: Partial Thromboplastin Time 69.7 SECONDS (23.9-36.7)
--- NOTE | 2023-08-27 18:01 | PC.NURSE ---
amioderone 400 mg due.bp 85/73 with map 77.hr 108.dr thomas notified.he ordered to give amioderone.
[2023-08-27] MEDS: heparin drip 25,000 UNIT/500 ML PREMIX 22 UNIT IV (18:36)
--- NOTE | 2023-08-27 18:49 | P.CONIM_ITS ---
Providers/Reason For Consult 2 Consulting Physician/Specialty*: Isra Reyes MD/ Cardiology Reason for Consult*: Atrial fibrillation with RVR Requesting Physician: Dr Mabry Attending Physician: Sung Mabry MD Primary Care Provider: ANGELINA Valadez History of Present Illness History of Present Illness Rudy Joe is a 67 year old male with past medical history of hyperlipidemia who presented to hospital with A-fib with RVR. Has palpitations and shortness of breath. Echo shows LV systolic function is moderately reduced with EF of 35 to 40%. He had stress test today that showed possible prior infarct in the RCA territory but no ischemia. His blood pressure is soft. Heart rates in 120s. He did have an episode of chest pain when he was in A-fib with RVR. Review of Systems 2 Const: Denies: fever(s) or chills Card: Reports: chest pain and palpitations Resp: Denies: dyspnea GI: Denies: abdominal pain : Denies: flank pain Neuro: Denies: headache(s) Medications/Allergies Home Medications Medication Instructions Recorded Confirmed Last Taken Type albuterol sulfate 90 mcg/actuation 1 inh inhalation QID PRN shortness 09/28/21 08/25/23 11/13/21 Rx aerosol inhaler (ProAir HFA) of breath or wheezing #6.7 grams atorvastatin 10 mg tablet 10 mg PO DAILY #30 tabs 09/28/21 08/25/23 08/25/23 Rx tamsulosin 0.4 mg capsule 0.4 mg PO TID 09/28/21 08/25/23 08/25/23 History fluticasone 250 mcg-salmeterol 50 1 inh inhalation Q12H 30 days #60 05/27/22 08/25/23 08/25/23 Rx mcg/dose blistr powdr for ea inhalation (Wixela Inhub) tiotropium bromide 2.5 2 puff inhalation DAILY #4 grams 05/27/22 08/25/23 08/25/23 Rx mcg/actuation mist for inhalation (Spiriva Respimat) ropinirole 3 mg tablet 3 mg PO TID #270 tabs 08/06/23 08/25/23 08/25/23 Rx diphenhydramine HCl 25 mg capsule 25 mg PO QPM 08/25/23 08/25/23 08/24/23 History (Sleep Aid (diphenhydramine)) levothyroxine 50 mcg tablet 50 mcg PO DAILY 08/25/23 08/25/23 08/25/23 History Allergies Allergy/AdvReac Type Severity Reaction Status Date / Time No Known Allergies Allergy Verified 08/25/23 13:19 Current Medications Generic Name Dose Route Start Last Admin Trade Name Freq PRN Reason Stop Dose Admin Alprazolam 0.5 mg 08/26/23 09:38 08/27/23 13:14 Alprazolam 0.5 Mg Tablet PO 0.5 mg TID PRN Administration ANXIETY Amiodarone HCl 400 mg 08/26/23 09:00 08/27/23 17:44 Amiodarone 200 Mg Tablet PO 400 mg BID CAMACHO Administration Atorvastatin Calcium 20 mg 08/26/23 09:00 08/27/23 08:10 Atorvastatin 40 Mg Tablet PO 20 mg DAILY CAMACHO Administration Heparin Sodium (Porcine) 0 unit 08/25/23 18:42 08/26/23 18:17 Heparin 5,000 Unit/Ml Inj 1 Ml IV 4,400 unit PRN PRN Administration Heparin weight-base protocol Protocol Heparin Sodium/Sodium Chloride 25,000 unit in 500 mls @ 0 mls/hr 08/25/23 18:42 08/27/23 18:36 Heparin Drip IV 10.36 unit/kg/hr .Q0M CAMACHO 22 mls/hr Administration Protocol Per Protocol Levothyroxine Sodium 50 mcg 08/26/23 09:00 08/27/23 08:11 Levothyroxine 50 Mcg Tablet PO 50 mcg DAILY CAMACHO Administration Pantoprazole Sodium 40 mg 08/25/23 19:45 08/26/23 20:03 Pantoprazole 40 Mg Sdv IVP 40 mg Q24H CAMACHO Administration Ropinirole HCl 3 mg 08/25/23 18:42 08/27/23 13:14 Ropinirole 2 Mg Tablet PO 3 mg TID CAMACHO Administration Tamsulosin HCl 0.4 mg 08/25/23 18:42 08/27/23 17:44 Tamsulosin 0.4 Mg Capsule PO 0.4 mg BID CAMACHO Administration Temazepam 30 mg 08/26/23 13:14 08/26/23 22:36 Temazepam 15 Mg Capsule PO 30 mg BEDTIME PRN Administration INSOMNIA PFSH Acute 2 PFSH: Medical History Barretts esophagus Fracture of right femur following insertion of orthopedic implant PAD (peripheral artery disease) Non-Hodgkin lymphoma in remission Former smoker Hypothyroidism BPH (benign prostatic hyperplasia) Hyperlipidemia COPD (chronic obstructive pulmonary disease) Surgical History History of esophagogastroduodenoscopy (EGD) 11/14/21 Family History Father CAD (coronary artery disease) S/P CABG (coronary artery bypass graft) Hypertension Myocardial infarction Social History Smoking and tobacco/nicotine status: former use of tobacco/nicotine Quit status (tobacco/nicotine): has quit using Year quit tobacco: 2020 Former quit date comment: 1 ppd X 50 years Alcohol intake: former Year of sobriety/quit date alcohol: 2011 Substance/Drug Use: current Substance/Drug use frequency: daily Other substance/drug use details: 4-5 joints/day Vitals/I&O/Wt Last Vital Signs Temp 97.6 F 08/27/23 16:00 Pulse 99 08/27/23 16:00 Resp 22 H 08/27/23 16:00 BP 89/65 08/27/23 16:00 Pulse Ox 96 08/27/23 16:00 O2 Del Method Room Air 08/27/23 16:00 08/27/23 08/27/23 08/27/23 06:59 14:59 22:59 Intake Total 360 / 360 980 / 1340 Balance 360 / 360 980 / 1340 Weight last 48 hrs Weight 234 lb Weight 234 lb Physical Exam 2 Narrative: GENERAL: Patient is alert, awake and oriented x3. [] NECK: No jugular vein distension. [] HEENT: No cyanosis. No icterus. No pallor. [] HEART irregularly irregular, tachycardic. LUNGS: Clear to auscultate bilaterally. [] CENTRAL NERVOUS SYSTEM: Grossly nonfocal. [] EXTREMITIES: Lower extremities with 1+ edema bilaterally. Data 08/28/23 04:20 08/27/23 07:10 A&P Assessment and plan (1) Atrial fibrillation with RVR: (2) Systolic CHF, acute: (3) Aortic stenosis: (4) Hyperlipidemia: Plan Patient is in new onset atrial fibrillation with RVR. Will proceed with MERCEDES cardioversion tomorrow. N.p.o. past midnight. Continue amiodarone. If blood pressure allows, will start low-dose beta-devorah. Stress test not showing significant ischemia. Medical therapy at this time. Likely nonischemic cardiomyopathy secondary to A-fib with RVR. Thank you for involving us with care of this patient. Will continue to follow. Please call with questions Consult Attestations 2 Medical Necessity Statement: Care expected to cross 2 midnights. Coding Level of Care Code Acute Code for [facility] Fwd Diagnoses Atrial fibrillation with RVR I48.91 Systolic CHF, acute I50.21 Aortic stenosis I35.0 Hyperlipidemia E78.5
[2023-08-27] MEDS: pantoprazole 40 mg SDV IVP (20:26)
[2023-08-27 21:59] LABS: Partial Thromboplastin Time 60.3 SECONDS (23.9-36.7)
[2023-08-27] MEDS: temazepam 15 mg Capsule 30 MG PO (22:19)
[2023-08-28] VITALS: BP 89/60; PULSE 68; RESP 27; TEMP 36.5; O2SAT 94
[2023-08-28 04:00] VITALS: BP 87/58; PULSE 73; RESP 28; TEMP 36.8; O2SAT 91
[2023-08-28 04:42] LABS: Basophils % 0.5 %; Eosinophils # 0.2 10^3/uL (0.0-0.8); Eosinophils % 2.5 %; Hematocrit 42.6 % (37-53); Lymphocytes # 1.5 10^3/uL (0.8-4.8); Lymphocytes % 24.2 %; Mean Corpuscular HGB Conc 31.5 g/dL (30-55); Mean Corpuscular Hemoglobin 29.8 pg (27-33); Mean Corpuscular Volume 94.9 fl (82-101); Mean Platelet Volume 9.4 fL (7.4-10.4); Monocytes # 0.3 10^3/uL (0.2-0.9); Monocytes % 5.2 %; Neutrophils # 4.24 10^3/uL (1.8-7.7); Neutrophils % 67.3 %; Nucleated Red Blood Cells % 0 %; Platelet Count 158 10^3/cmm (157-399); Red Blood Count 4.49 10^6/uL (3.85-5.65); Red Cell Distribution Width 15.9 % (12.1-15.1); White Blood Count 6.31 10^3/uL (3.29-11.43)
[2023-08-28 06:00] VITALS: PULSE 68
[2023-08-28 07:06] VITALS: BP 95/78; PULSE 75; RESP 16; TEMP 36.6; O2SAT 92
[2023-08-28 08:00] VITALS: BP 95/78; PULSE 75; RESP 16; TEMP 36.6
[2023-08-28] MEDS: ropinirole 2 mg Tablet 3 MG PO (08:04)
[2023-08-28] MEDS: levothyroxine 50 mcg Tablet PO (08:04)
[2023-08-28] MEDS: atorvastatin 40 mg Tablet 20 MG PO (08:04)
[2023-08-28] MEDS: tamsulosin 0.4 mg Capsule 0.400000000000000022 MG PO (08:04)
[2023-08-28] MEDS: amiodarone 200 mg Tablet 400 MG PO (08:04)
--- NOTE | 2023-08-28 09:22 | P.PN_ITS ---
Subjective 2 Subjective: We had plan to cardiovert patient today however patient converted spontaneously overnight to sinus rhythm. Heart rate in the 60s. Blood pressure is stable. Vitals/I&O/Wt Last Vital Signs Temp 97.9 F 08/28/23 08:00 Pulse 75 08/28/23 08:00 Resp 16 08/28/23 08:00 BP 95/78 08/28/23 08:00 Pulse Ox 92 08/28/23 07:06 O2 Del Method Room Air 08/28/23 07:06 08/27/23 08/28/23 08/28/23 22:59 06:59 14:59 Intake Total 980 / 1340 440 / 1780 Balance 980 / 1340 440 / 1780 Weight last 48 hrs Weight 226 lb Weight 234 lb Physical Exam 2 Narrative: GENERAL: Patient is alert, awake and oriented x3. [] NECK: No jugular vein distension. [] HEENT: No cyanosis. No icterus. No pallor. [] HEART irregularly irregular, tachycardic. LUNGS: Clear to auscultate bilaterally. [] CENTRAL NERVOUS SYSTEM: Grossly nonfocal. [] EXTREMITIES: Lower extremities with 1+ edema bilaterally. Data 08/28/23 04:20 08/27/23 07:10 A&P Assessment and plan (1) Atrial fibrillation with RVR: (2) Systolic CHF, acute: (3) Aortic stenosis: (4) Hyperlipidemia: Plan Patient is converted back to normal sinus rhythm. Can switch to Eliquis 5 mg twice daily. Check renal function Can start metoprolol 12.5mg BID. Continue amiodarone Thank you for involving us with care of this patient. From cardiac standpoint, patient is stable to be discharged. Please call with questions Attestations 2 Medical Necessity Statement*: Care exected to cross 2 midnights. Coding Level of Care Code Acute Code for [facility] F[facility] Diagnoses Atrial fibrillation with RVR I48.91 Systolic CHF, acute I50.21 Aortic stenosis I35.0 Hyperlipidemia E78.5
[2023-08-28 09:59] LABS: Anion Gap 12.4 (5-19); Blood Urea Nitrogen 22 mg/dL (8-23); Calcium 8.6 mg/dL (8.5-10.5); Carbon Dioxide 27 mmol/L (22-29); Chloride 104 mmol/L (98-107); Creatinine Clr Calc Pharmacy 68.5551; Glucose 108 mg/dL (65-115); Osmolality Calculated 292 mOsm/kg (285-295); Potassium 4.4 mmol/L (3.5-5.1); Sodium 139 mmol/L (136-145)
[2023-08-28] MEDS: apixaban 5 mg Tablet PO (09:59)
--- NOTE | 2023-08-28 10:46 | PM.DCS ---
Discharge Providers Date of Admission: 08/25/23 15:30 Date of Discharge: August 28, 2023 Attending Provider at Admission: Sung Mabry MD Attending Provider at Discharge: Sung Mabry MD Primary Care Provider: ANGELINA Valadez Diagnoses at Discharge Discharge Diagnosis (1) Atrial fibrillation with RVR: Status: Acute (2) Systolic CHF, acute: Status: Acute (3) Aortic stenosis: Status: Acute (4) Hyperlipidemia: Status: Acute Reason for Visit Reason for Visit: A fib Hospital Course Hospital Course Rudy Joe is a 67 year old male with a past medical history of non-Hodgkin's lymphoma, involving left axilla, status post surgical intervention, and radiation therapy to the chest peripheral vascular disease, hypothyroidism, hyperlipidemia, borderline diabetes, history of COPD, prior history of smoking, history of aortic stenosis, who presents [facility] due to chest palpitations, fatigue, malaise, feeling unwell. 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, he had recently taken a load all the way to [place] when he started feeling unwell, felt extremely exhausted and fatigued, so he turned around and came back and went to the [place], at the [place] he was found to have concerns for tachycardia, concerns for A-fib to be sent to [facility] for evaluation, here he was found to have A-fib with RVR placed on Cardizem drip however developed hypotension, Cardizem drip has been stopped, plans on amiodarone with amiodarone bolus, currently he is alert oriented x 4, follows all commands, heart rates are in the 140s, blood pressures 90s over 60s, denies any fevers, no chills, no cough denies any alcoholism, does report smoking in the past but quit sometime ago, denies any IV drug use, denies any other drug use except marijuana, does report drinking a lot of Pepsi, no other caffeine, no energy drinks, no calf pain, no hemoptysis, no sudden onset shortness of breath, does report mild chest discomfort at times This is a 67-year-old male who presented to [facility] for shortness of breath multifactorial from systolic CHF, A-fib with RVR, placed on amiodarone drip, heparin drip monitored as inpatient, transition to p.o. amiodarone, patient converted to normal sinus rhythm the morning of 08/28/2023. Will be discharged on an amiodarone tapering dose, and Eliquis, with close follow-up with cardiology as outpatient We had a long discussion about his echocardiogram findings and stress test findings CONCLUSIONS LV systolic function is moderately reduced with EF of 35 to 40%. RV is mild to moderately hypokinetic. Left atrial dilation seen. Mild mitral regurgitation. Mild to moderate aortic stenosis with aortic valve area of 1.1 cm squared and mean gradient of 11 mmHg. Mild tricuspid regurgitation. IVC is dilated. Compared to prior echocardiogram from 2021, LV systolic function has decreased significantly. IMPRESSIONS 1. Myocardial perfusion imaging revealing small area of persistent decreased tracer uptake involving the mid inferior wall region suggestive of myocardial scarring versus attenuation artifact 2. Normal moderately diminished LV ejection fraction of 34%. 3. LV wall motion analysis revealed diffuse hypokinesia of the left ventricle 4. Mildly dilated LV cavity with end-systolic volume was 70 ml The above features may suggest a nonischemic form of cardiomyopathy. Clinical correlation is recommended -Cardiology consulted, medically managed ? Patient was advised to continue to monitor for chest pain if so go to the emergency room ? Follow-up with cardiology in 1 week for aortic stenosis please follow-up with cardiology Physical Exam Const: COMMON NORMALS: no acute distress and patient oriented x3 Resp: COMMON NORMALS: normal respiratory effort, No retractions, No use of accessory muscles and clear to auscultation bilaterally AUSCULTATION: clear to auscultation bilaterally Cardio: COMMON NORMALS: regular rate, regular rhythm, S1 normal heart sound present and S2 normal heart sound present RATE: regular rate RHYTHM: regular rhythm HEART SOUNDS: S1 normal heart sound present and S2 normal heart sound present GI: COMMON NORMALS: Normal to inspection, nondistended, normoactive bowel sounds present and non-tender Extremity: COMMON NORMALS: no pedal edema Neuro: COMMON NORMALS: patient oriented x3 Psych: COMMON NORMALS: mental status grossly normal Discharge Data Studies Completed and Pending Completed Studies During Hospitalization Category Date Time Status Sestamibi Stress Test Request Routine Exams 08/26/23 13:14 Draft XR chest 1V portable [id number] Stat Exams 08/25/23 12:56 Completed NM nikki perf SPECT r/s* [id number] Routine Nuc Med 08/27/23 13:14 [place] [id number] Stat Ultrasound 08/25/23 14:24 Completed CV. echo complete* [id number] Stat Ultrasound 08/25/23 14:24 Completed Pending at discharge Category Date Time Status BMP [Basic Metabolic Panel] AM LABS Lab 08/28/23 15:22 Ordered Laboratory Results WBC 6.31 10^3/uL (3.29-11.43) 08/28/23 04:20 RBC 4.49 10^6/uL (3.85-5.65) 08/28/23 04:20 Hgb 13.40 g/dL (11.27-16.99) 08/28/23 04:20 Hct 42.6 % (37-53) 08/28/23 04:20 MCV 94.9 fl (82-101) 08/28/23 04:20 MCH 29.8 pg (27-33) 08/28/23 04:20 MCHC 31.5 g/dL (30-55) 08/28/23 04:20 RDW 15.9 % (12.1-15.1) H 08/28/23 04:20 Plt Count 158 10^3/cmm (157-399) 08/28/23 04:20 MPV 9.4 fL (7.4-10.4) 08/28/23 04:20 Neut % (Auto) 67.3 % 08/28/23 04:20 Lymph % (Auto) 24.2 % 08/28/23 04:20 [place] % (Auto) 5.2 % 08/28/23 04:20 Eos % (Auto) 2.5 % 08/28/23 04:20 Baso % (Auto) 0.5 % 08/28/23 04:20 Neut # (Auto) 4.24 10^3/uL (1.8-7.7) 08/28/23 04:20 Lymph # (Auto) 1.5 10^3/uL (0.8-4.8) 08/28/23 04:20 [place] # (Auto) 0.3 10^3/uL (0.2-0.9) 08/28/23 04:20 Eos # (Auto) 0.2 10^3/uL (0.0-0.8) 08/28/23 04:20 Baso # (Auto) 0.0 10^3/uL (0.0-0.1) 08/28/23 04:20 Nucleated RBC % (auto) 0 % 08/28/23 04:20 Nucleated RBCs # 0.0 /100WBC 08/28/23 04:20 PT 13.40 SECONDS (12.1-14.9) 08/25/23 13:15 INR 0.99 (0.8-1.2) 08/25/23 13:15 APTT 60.3 SECONDS (23.9-36.7) H 08/27/23 21:39 D-Dimer 0.62 ug/mLFEU (0-0.59) H 08/25/23 13:15 Specimen Type Arterial 08/25/23 14:45 Sample Site Radial, left 08/25/23 14:45 ABG pH 7.38 (7.35-7.45) 08/25/23 14:45 ABG pCO2 42.3 mmHg (35-45) 08/25/23 14:45 ABG pO2 70.1 mmHg (80.0-100.0) L 08/25/23 14:45 ABG PO2/FiO2 Ratio 0 08/25/23 14:45 ABG HCO3 25.1 mmol/L (22-26) 08/25/23 14:45 ABG Base Excess -0.1 mmol/L (-2.0-2.0) 08/25/23 14:45 Migel Test Pos 08/25/23 14:45 Hematocrit 43.1 % (42-52) 08/25/23 14:45 O2 Delivery Device Room air 08/25/23 14:45 FiO2 21.0 % 08/25/23 14:45 [employer] ID [place] 08/25/23 14:45 Sodium 139 mmol/L (136-145) 08/28/23 04:20 Potassium 4.4 mmol/L (3.5-5.1) 08/28/23 04:20 Chloride 104 mmol/L (98-107) 08/28/23 04:20 Carbon Dioxide 27 mmol/L (22-29) 08/28/23 04:20 Anion Gap 12.4 (5-19) 08/28/23 04:20 BUN 22 mg/dL (8-23) 08/28/23 04:20 Creatinine 1.2 mg/dL (0.7-1.2) 08/28/23 04:20 GFR Calculation 60.0 mL/min (90-130) L 08/28/23 04:20 Glucose 108 mg/dL (65-115) 08/28/23 04:20 Estimat Average Glucose 131 08/25/23 12:39 Hemoglobin A1c 6.2 % (4.0-6.0) H 08/25/23 12:39 Calculated Osmolality 292 mOsm/kg (285-295) 08/28/23 04:20 Lactic Acid 1.6 mmol/L (0.5-2.2) 08/25/23 13:15 Calcium 8.6 mg/dL (8.5-10.5) 08/28/23 04:20 Phosphorus 4.2 mg/dL (2.5-4.5) 08/26/23 03:08 Magnesium 1.9 mg/dL (1.7-2.3) 08/26/23 03:08 Total Bilirubin 0.2 mg/dL (0.15-1.2) 08/26/23 03:08 AST 29 U/L (0-40) 08/26/23 03:08 ALT 47 U/L (0-41) H 08/26/23 03:08 Alkaline Phosphatase 67 U/L (40-130) 08/26/23 03:08 Troponin T Baseline 21 ng/L (0-15) H 08/25/23 13:15 Troponin T 120 Minute 16.24 ng/L (0-15) H 08/25/23 15:16 Delta Troponin T -4.76 ABS# (0-10) L 08/25/23 15:16 Troponin T Hi Sens 6Hr 17.31 ng/L (0-15) H 08/25/23 20:38 Troponin T Hi Sens 6Hr Delta -3.69 ng/L (0-12) L 08/25/23 20:38 NT-Pro-B Natriuret Pep 4806 pg/mL (0-125) H 08/25/23 13:15 Total Protein 6.5 g/dL (6.6-8.7) L 08/26/23 03:08 Albumin 3.5 g/dL (3.5-5.2) 08/26/23 03:08 Globulin 3.0 g/dL (1.3-4.6) 08/26/23 03:08 Triglycerides 126 mg/dL (0-150) 08/25/23 20:38 Cholesterol 95 mg/dL (0-200) 08/25/23 20:38 LDL Cholesterol, Calc 43 mg/dL (50-129) L 08/25/23 20:38 HDL Cholesterol 27 mg/dL (60-100) L 08/25/23 20:38 LDL/HDL Ratio 1.59 RATIO (0.00-3.22) 08/25/23 20: Cholesterol/HDL Ratio 3.52 mg/dL (1.0-5.00) 08/25/23 20:38 Procalcitonin 0.07 ng/mL (0-0.5) 08/25/23 13:15 TSH 6.35 uIU/mL (0.27-4.20) H 08/25/23 13:15 Urine Color Yellow (Yellow) 08/26/23 06:00 Urine Appearance Cloudy (CLEAR) A 08/26/23 06:00 Urine pH 5 (5-7) 08/26/23 06:00 Ur Specific [place] 1.025 (1.005-1.030) 08/26/23 06:00 Urine Protein Neg (Negative) 08/26/23 06:00 Urine Glucose (UA) Norm (Normal) 08/26/23 06:00 Urine Ketones 1+ (Negative) H 08/26/23 06:00 Urine Blood Neg (Negative) 08/26/23 06:00 Urine Nitrate Negative (Negative) 08/26/23 06:00 Urine Bilirubin Neg (Negative) 08/26/23 06:00 Urine Urobilinogen Neg mg/dL (Negative) 08/26/23 06:00 Ur Leukocyte Esterase Negative (Negative) 08/26/23 06:00 Urine RBC None /hpf (0-2) 08/26/23 06:00 Urine WBC None /hpf (0-5) 08/26/23 06:00 Ur Squamous Epith Cells None /hpf (0-5) 08/26/23 06:00 Amorphous Sediment 4+ /hpf 08/26/23 06:00 Urine Bacteria None /hpf (NONE) 08/26/23 06:00 Urine Opiates Screen Negative ng/mL (Negative) 08/26/23 06:00 Ur Barbiturates Screen Negative ng/mL (Negative) 08/26/23 06:00 Ur Phencyclidine Scrn Negative ng/mL (Negative) 08/26/23 06:00 Ur Amphetamines Screen Negative ng/mL (Negative) 08/26/23 06:00 U Benzodiazepines Scrn Negative ng/mL (Negative) 08/26/23 06:00 Urine Cocaine Screen Negative ng/mL (Negative) 08/26/23 06:00 U Marijuana (THC) Screen Positive ng/mL (Negative) H 08/26/23 06:00 Ethyl Alcohol < 10 mg/dL (0-10) 08/25/23 13:15 Vitals Last Vital Signs Temp 97.9 F 08/28/23 08:00 Pulse 75 08/28/23 08:00 Resp 16 08/28/23 08:00 BP 95/78 08/28/23 08:00 Pulse Ox 92 08/28/23 07:06 O2 Del Method Room Air 08/28/23 07:06 Discharge Plan Discharge Patient Disposition: Home Condition: Stable Prescriptions: New Pacerone 200 mg Tablet See Rx Instructions .ROUTE .COMPLEX Qty: 60 0RF Rx Instructions: 2 tabs twice daily for 5 days, followed by 1 tab twice daily for 14 days, then 1 tab daily thereafter Eliquis 5 mg Tablet 5 mg PO BID@0900,2100 30 Days Qty: 60 0RF temazepam 30 mg capsule 30 mg PO BEDTIME PRN (Reason: sleep) 7 Days Qty: 7 0RF Continued tamsulosin 0.4 mg capsule 0.4 mg PO TID fluticasone propion-salmeterol [Wixela Inhub] 250-50 mcg/dose blister with device 1 inh inhalation Q12H 30 Days Qty: 60 3RF Spiriva Respimat 2.5 mcg/actuation mist 2 puff inhalation DAILY Qty: 4 3RF ropinirole 3 mg tablet 3 mg PO TID Qty: 270 3RF atorvastatin 10 mg tablet 10 mg PO DAILY Qty: 30 3RF albuterol sulfate [ProAir HFA] 90 mcg/actuation HFA aerosol inhaler 1 inh inhalation QID PRN (Reason: shortness of breath or wheezing) Qty: 6.7 2RF levothyroxine 50 mcg Tablet 50 mcg PO DAILY Sleep Aid (diphenhydramine) 25 mg Capsule 25 mg PO QPM Discharge Orders: Discharge Order (Routine); Ordered 08/28/23 Ordered By: Sung Mabry Referrals: Isra Reyes M.D [Physician] - 1 month Marisa Ram FNP [Primary Care Provider] - Discharge Diet: Cardiac Discharge Activity: Resume usual activity Patient Instructions: Opioid Safety Activity Restrictions/Additional Instructions: - I have discharged on a tapering dose of amiodarone, please may use medication as prescribed ? Please follow-up with cardiology ? I discharged you on Eliquis to decrease your risk of strokes with her atrial fibrillation, if you develop bloody or black stools, lightheadedness or dizziness, or any significant fall please go to emergency room Discharge Attestations Time Spent in Discharge Care*: greater than 30 min Quality Metrics Clinical Quality Measures [ No reported AMI, CVA or VTE this stay] Coding Level of Care Code 30577 Total time (in minutes) for Discharge: 45 Diagnoses Atrial fibrillation with RVR I48.91 Systolic CHF, acute I50.21 Aortic stenosis I35.0 Hyperlipidemia E78.5
[2023-08-28 11:26] VITALS: BP 95/78; PULSE 75; RESP 16; TEMP 36.6
--- NOTE | 2023-08-28 11:28 | PC.NURSE ---
Discharge Note Patient discharged to home via POV accompanied by spouse. 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 Mobile pharmacy medications and/or prescriptions provided. Belongings/home medications returned.
== END 2023-08-28 11:29 | disposition home or self-care (01) | DRG 292 ==
LOC: ER 14:54 → CSU 15:31
PROVIDERS: Admitting Provider Family Medicine; Emergency Provider Emergency Medicine; PCP Nurse Practitioner; Visit Provider Family Medicine
DX: I50.21 Acute systolic (congestive) heart failure (principal); C85.94 Non-Hodgkin lymphoma, unspecified, lymph nodes of axilla and upper limb; I48.91 Unspecified atrial fibrillation; I95.9 Hypotension, unspecified; I35.0 Nonrheumatic aortic (valve) stenosis; N40.0 Benign prostatic hyperplasia without lower urinary tract symptoms; E78.5 Hyperlipidemia, unspecified; E03.9 Hypothyroidism, unspecified; Z66 Do not resuscitate; Z87.891 Personal history of nicotine dependence; G47.00 Insomnia, unspecified
CPT/HCPCS: 36415; 36600; 71045; 78452; 80048; 80053; 80061; 80306; 80307; 81001; 82803; 83036; 83605; 83735; 83880; 84100; 84145; 84443; 84484; 85025; 85378; 85610; 85730; 93005; 93017; 93306; 93970; 94664; 96365; 96367; 96375; 96376; 99285; A9500; C9113; J0283; J1644; J1940; J2785; J3490; J7030

== ENCOUNTER → 2023-09-05 07:56 | Outpatient (BNVA) | payer OTHER, SELFPAY | PROVIDERS: PCP Nurse Practitioner; Visit Provider Internal Medicine Pulmonary Disease | DX: J44.9 Chronic obstructive pulmonary disease, unspecified (principal); R91.1 Solitary pulmonary nodule; G47.30 Sleep apnea, unspecified; Z87.891 Personal history of nicotine dependence | CPT/HCPCS: 99214 ==

== ENCOUNTER → 2023-09-24 13:33 | Outpatient (BNVA) | payer OTHER, SELFPAY | PROVIDERS: PCP Nurse Practitioner; Visit Provider Nurse Practitioner Family | DX: I48.0 Paroxysmal atrial fibrillation (principal); Z87.891 Personal history of nicotine dependence; R94.31 Abnormal electrocardiogram [ECG] [EKG] | CPT/HCPCS: 93005; 99213 ==

== ENCOUNTER 2023-10-14 12:52 | Outpatient (CLI) | payer OTHER, SELFPAY ==
--- NOTE | 2023-10-14 13:00 | CT_ITS ---
WS: [id number] CT chest wo con [id number] HISTORY: 6 month f/u TECHNIQUE: Axial imaging performed through the thorax. Coronal and sagittal reformats are submitted. [facility] use at least one of these dose optimization techniques: automated exposure control; mA and/or kV adjustment per patient size (includes targeted exams where dose is mat ched to clinical indication); or iterative reconstruction. CONTRAST: None DLP: 545.83 mGy.cm COMPARISON: 08/16/2021, 04/14/2023 Lungs and central airway: Chronic emphysema. Slightly spiculated 7 mm nodule abutting the mediastinum in the LEFT upper lobe is reidentified. Not significantly changed since the most recent exam. No new mass or nodule. No pneumonia. Mild interstitial thickening RIGHT middle lobe. Stable biapical pleura l scarring. Pleura: Normal. No pleural effusion. Heart and pericardium: Normal size heart with no pericardial effusion. Mediastinum and dania: No mediastinum or hilar adenopathy. Vessels: Mild atherosclerosis aorta. Normal size pulmonary artery. Chest wall and lower neck: No soft tissue masses. Upper abdomen: Reidentified are multiple cysts scattered throughout the liver. Stable and negative on PET/CT. Osseous structures: No destructive process. CT/CT chest wo con [id number] IMPRESSION: 1. No interval change in the spiculated nodule abutting the mediastinum in the LEFT upper lobe. Nodule measures 7 mm. Recommend continued follow-up. Recommen d follow-up chest CT in 6 months. 2. Chronic emphysema. 3. No additional suspicious mass or nodule. 4. No adenopathy.
== END 2023-10-14 12:53 | disposition home or self-care (01) ==
LOC: RAD 12:52
PROVIDERS: PCP Nurse Practitioner; Visit Provider Internal Medicine Pulmonary Disease
DX: R91.1 Solitary pulmonary nodule (principal); J43.9 Emphysema, unspecified; J98.4 Other disorders of lung
CPT/HCPCS: 71250

== ENCOUNTER → 2023-12-30 12:40 | Outpatient (BNVA) | payer OTHER, SELFPAY | PROVIDERS: PCP Nurse Practitioner; Visit Provider Internal Medicine | DX: I48.0 Paroxysmal atrial fibrillation (principal); R06.02 Shortness of breath; J45.909 Unspecified asthma, uncomplicated; G47.10 Hypersomnia, unspecified; E78.5 Hyperlipidemia, unspecified; I73.9 Peripheral vascular disease, unspecified; E03.9 Hypothyroidism, unspecified; F17.200 Nicotine dependence, unspecified, uncomplicated | CPT/HCPCS: 99214 ==

== ENCOUNTER → 2024-07-06 14:58 | Outpatient (BNVA) | payer OTHER, SELFPAY | PROVIDERS: PCP Nurse Practitioner; Visit Provider Internal Medicine | DX: I48.0 Paroxysmal atrial fibrillation (principal); R06.02 Shortness of breath; J45.909 Unspecified asthma, uncomplicated; G47.10 Hypersomnia, unspecified; E78.5 Hyperlipidemia, unspecified; I73.9 Peripheral vascular disease, unspecified; E03.9 Hypothyroidism, unspecified; F17.200 Nicotine dependence, unspecified, uncomplicated | CPT/HCPCS: 99214 ==

== ENCOUNTER 2024-07-21 09:39 | Emergency (ER) | payer OTHER, SELFPAY ==
[2024-07-21 09:57] VITALS: BP 139/68; PULSE 60; RESP 17; TEMP 36.3; O2SAT 96; BMI 32.8
--- NOTE | 2024-07-21 10:19 | W.ED.EXTPRO ---
HPI - Extremity Problem General: Chief complaint: Extremity Problem,Nontraumatic Stated complaint: knot on right leg Time Seen by Provider: 07/21/24 09:42 History of Present Illness: 68-year-old male presents emergency room complaining of swollen area on his right anterior tibia medially. No recollection of any trauma he is on apixaban for atrial fibrillation. No chest pain or shortness of breath no chest pain Related Data Home Medications ?Medication ?Instructions ?Recorded ?Confirmed tamsulosin 0.4 mg capsule 0.4 mg PO TID 09/28/21 07/06/24 levothyroxine 50 mcg tablet 50 mcg PO DAILY 08/25/23 07/06/24 zolpidem 10 mg tablet PO 09/05/23 07/06/24 finasteride 5 mg tablet 5 mg PO DAILY 07/06/24 07/06/24 Previous Rx's ?Medication ?Instructions ?Recorded albuterol sulfate 90 mcg/actuation 1 inh inhalation QID PRN shortness 09/28/21 aerosol inhaler (ProAir HFA) of breath or wheezing #6.7 grams atorvastatin 10 mg tablet 10 mg PO DAILY #30 tabs 09/28/21 fluticasone 250 mcg-salmeterol 50 1 inh inhalation Q12H 30 days #60 05/27/22 mcg/dose blistr powdr for ea inhalation (Wixela Inhub) tiotropium bromide 2.5 2 puff inhalation DAILY #4 grams 05/27/22 mcg/actuation mist for inhalation (Spiriva Respimat) amiodarone 200 mg tablet (Pacerone) 200 mg PO DAILY #90 tabs 09/24/23 apixaban 5 mg tablet (Eliquis) 5 mg PO BID #180 tabs 09/24/23 ropinirole 3 mg tablet 3 mg PO TID #270 tabs 05/04/24 furosemide 20 mg tablet 20 mg PO BID #180 tabs 07/06/24 Allergies Allergy/AdvReac Type Severity Reaction Status Date / Time No Known Allergies Allergy Verified 07/06/24 15:15 [facility] ED PFSH: Medical History Atrial fibrillation anticoagulated with apixaban Barretts esophagus Fracture of right femur following insertion of orthopedic implant PAD (peripheral artery disease) Non-Hodgkin lymphoma in remission Former smoker Hypothyroidism BPH (benign prostatic hyperplasia) Hyperlipidemia COPD (chronic obstructive pulmonary disease) Surgical History History of esophagogastroduodenoscopy (EGD) 11/14/21 Family History Father CAD (coronary artery disease) S/P CABG (coronary artery bypass graft) Hypertension Myocardial infarction Social History Smoking and tobacco/nicotine status: former use of tobacco/nicotine Quit status (tobacco/nicotine): has quit using Year quit tobacco: 2020 Former quit date comment: 1 ppd X 50 years Alcohol intake: former Year of sobriety/quit date alcohol: 2011 Substance/Drug Use: current Substance/Drug use frequency: daily Other substance/drug use details: 4-5 joints/day Physical Exam Const: COMMON NORMALS: no acute distress GENERAL APPEARANCE: cooperative and comfortable ORIENTATION/CONSCIOUSNESS: Yes awake, Yes oriented to person, Yes oriented to place and Yes oriented to time HENMT: COMMON NORMALS: normocephalic, atraumatic and hearing grossly normal bilaterally HEAD & SCALP: normocephalic and atraumatic Extremity: COMMON NORMALS: normal to inspection, capillary refill normal, no clubbing, cyanosis or edema, no calf tenderness and no pedal edema OTHER: Anterior medial hematoma overlying the medial aspect of the tibia on the right proximal area with approximately inch and a quarter size at most mildly tender no redness no erythema no skin breakdown. No calf swelling or tenderness no edema lower extremity Neuro: SENSORIUM/ORIENTATION: Yes oriented to person, Yes oriented to place and Yes oriented to time Skin: COMMON NORMALS: no rashes or lesions noted GENERAL SKIN EXAM: no rashes or lesions noted Course Vital Signs: Vital signs: Vital Signs Temperature 97.4 F L 07/21/24 09:57 Pulse Rate 55 L 07/21/24 10:33 Respiratory Rate 17 07/21/24 09:57 Blood Pressure 120/72 07/21/24 10:33 Pulse Oximetry 95 07/21/24 10:33 Oxygen Delivery Me thod Room Air 07/21/24 09:57 MDM - Extremity (Nontraumatic) Medical Decision Making Small area of hematoma anterior tibia on the right no evidence of DVT on exam discussed with the patient we do not usually worry about this particular sort of issue this is either from a small trauma or rupture of varicose vein the area is small there is not any active bleeding no sign of infection no signs of DVT COVID follow-up as needed. Elevate or ice for comfort if needed. Lab Data 07/21/24 10:31 07/21/24 10:31 Laboratory Results WBC 4.77 10^3/uL (3.29-11.43) 07/21/24 10:31 RBC 4.60 10^6/uL (3.85-5.65) 07/21/24 10:31 Hgb 13.90 g/dL (11.27-16.99) 07/21/24 10:31 Hct 41.6 % (37-53) 07/21/24 10:31 MCV 90.4 fl (82-101) 07/21/24 10:31 MCH 30.2 pg (27-33) 07/21/24 10:31 MCHC 33.4 g/dL (30-55) 07/21/24 10:31 RDW 15.2 % (12.1-15.1) H 07/21/24 10:31 Plt Count 161 10^3/cmm (157-399) 07/21/24 10:31 MPV 8.9 fL (7.4-10.4) 07/21/24 10:31 Neut % (Auto) 61.5 % 07/21/24 10:31 Lymph % (Auto) 24.3 % 07/21/24 10:31 Yell % (Auto) 10.3 % 07/21/24 10:31 Eos % (Auto) 2.5 % 07/21/24 10:31 Baso % (Auto) 0.8 % 07/21/24 10:31 Neut # (Auto) 2.93 10^3/uL (1.8-7.7) 07/21/24 10:31 Lymph # (Auto) 1.2 10^3/uL (0.8-4.8) 07/21/24 10:31 Yell # (Auto) 0.5 10^3/uL (0.2-0.9) 07/21/24 10:31 Eos # (Auto) 0.1 10^3/uL (0.0-0.8) 07/21/24 10:31 Baso # (Auto) 0.0 10^3/uL (0.0-0.1) 07/21/24 10:31 Nucleated RBC % (auto) 0 % 07/21/24 10:31 Nucleated RBCs # 0.0 /100WBC 07/21/24 10:31 PT 13.80 SECONDS (12.1-14.9) 07/21/24 10:31 INR 0.99 (0.8-1.2) 07/21/24 10:31 Sodium 137 mmol/L (136-145) 07/21/24 10:31 Potassium 4.2 mmol/L (3.5-5.1) 07/21/24 10:31 Chloride 104 mmol/L (98-107) 07/21/24 10:31 Carbon Dioxide 23 mmol/L (22-29) 07/21/24 10:31 Anion Gap 14.2 (5-19) 07/21/24 10:31 BUN 33 mg/dL (8-23) H 07/21/24 10:31 Creatinine 1.1 mg/dL (0.7-1.2) 07/21/24 10:31 GFR Calculation 66.2 mL/min (90-130) L 07/21/24 10:31 Glucose 99 mg/dL (65-115) 07/21/24 10:31 Calculated Osmolality 291 mOsm/kg (285-295) 07/21/24 10:31 Calcium 8.8 mg/dL (8.5-10.5) 07/21/24 10:31 Total Bilirubin 0.4 mg/dL (0.15-1.2) 07/21/24 10:31 AST 28 U/L (0-40) 07/21/24 10:31 ALT 42 U/L (0-41) H 07/21/24 10:31 Alkaline Phosphatase 74 U/L (40-130) 07/21/24 10:31 Total Protein 7.1 g/dL (6.6-8.7) 07/21/24 10:31 Albumin 3.8 g/dL (3.5-5.2) 07/21/24 10:31 Globulin 3.3 g/dL (1.3-4.6) 07/21/24 10:31 No radiology studies performed this visit Discharge Plan Discharge Patient Disposition: Home Clinical Impression: Hematoma Condition: Stable Prescriptions: No Action tamsulosin 0.4 mg capsule 0.4 mg PO TID fluticasone propion-salmeterol [Wixela Inhub] 250-50 mcg/dose blister with device 1 inh inhalation Q12H 30 Days Qty: 60 3RF Spiriva Respimat 2.5 mcg/actuation mist 2 puff inhalation DAILY Qty: 4 3RF finasteride 5 mg tablet 5 mg PO DAILY furosemide 20 mg tablet 20 mg PO BID Qty: 180 3RF atorvastatin 10 mg tablet 10 mg PO DAILY Qty: 30 3RF albuterol sulfate [ProAir HFA] 90 mcg/actuation HFA aerosol inhaler 1 inh inhalation QID PRN (Reason: shortness of breath or wheezing) Qty: 6.7 2RF zolpidem 10 mg tablet PO Pacerone 200 mg tablet 200 mg PO DAILY Qty: 90 3RF Eliquis 5 mg tablet 5 mg PO BID Qty: 180 3RF ropinirole 3 mg tablet 3 mg PO TID Qty: 270 3RF levothyroxine 50 mcg Tablet 50 mcg PO DAILY Discharge Orders: Discharge ED (Routine); Ordered 07/21/24 Ordered By: Jorge Howe Referrals: Marisa Ram FNP [Primary Care Provider] - Discharge Diet: Usual diet Discharge Activity: Increase activity as tolerated Patient Instructions: Opioid Safety, Pain Management Activity Restrictions/Additional Instructions: Thank you for choosing [facility] for your healthcare needs today. It is very important that you follow up as instructed or that you return to the Emergency Department should you have concerns or if your condition changes or worsens in any way. You were seen in the emergency room for concern of an area of swelling on your right leg. There is a small hematoma overlying the tibia. This is not a concern for it deep venous thrombosis. There was no evidence of bony involvement. Recommend observation you can elevate or ice as needed for comfort. Print Language: Luxembourgish Coding Level of Care Code ED Picture Hanger for Callie Mcnamara
[2024-07-21 10:33] VITALS: BP 120/72; PULSE 55; O2SAT 95
[2024-07-21 10:57] LABS: Basophils % 0.8 %; Eosinophils # 0.1 10^3/uL (0.0-0.8); Eosinophils % 2.5 %; Hematocrit 41.6 % (37-53); Lymphocytes # 1.2 10^3/uL (0.8-4.8); Lymphocytes % 24.3 %; Mean Corpuscular HGB Conc 33.4 g/dL (30-55); Mean Corpuscular Hemoglobin 30.2 pg (27-33); Mean Corpuscular Volume 90.4 fl (82-101); Mean Platelet Volume 8.9 fL (7.4-10.4); Monocytes # 0.5 10^3/uL (0.2-0.9); Monocytes % 10.3 %; Neutrophils # 2.93 10^3/uL (1.8-7.7); Neutrophils % 61.5 %; Nucleated Red Blood Cells % 0 %; Platelet Count 161 10^3/cmm (157-399); Red Cell Distribution Width 15.2 % (12.1-15.1); White Blood Count 4.77 10^3/uL (3.29-11.43)
[2024-07-21 11:15] LABS: INR 0.99 (0.8-1.2)
[2024-07-21 11:22] LABS: Alanine Aminotransferase 42 U/L (0-41); Albumin Level 3.8 g/dL (3.5-5.2); Alkaline Phosphatase 74 U/L (40-130); Anion Gap 14.2 (5-19); Aspartate Amino Transferase 28 U/L (0-40); Blood Urea Nitrogen 33 mg/dL (8-23); Calcium 8.8 mg/dL (8.5-10.5); Carbon Dioxide 23 mmol/L (22-29); Chloride 104 mmol/L (98-107); Creatinine Clr Calc Pharmacy 73.0927; Globulin 3.3 g/dL (1.3-4.6); Glomerular Filtration Rate 66.2 mL/min (90-130); Glucose 99 mg/dL (65-115); Osmolality Calculated 291 mOsm/kg (285-295); Potassium 4.2 mmol/L (3.5-5.1); Sodium 137 mmol/L (136-145); Total Bilirubin 0.4 mg/dL (0.15-1.2); Total Protein 7.1 g/dL (6.6-8.7)
--- NOTE | 2024-07-21 13:37 | PC.PHAR ---
Pt is Va
== END 2024-07-21 10:34 | disposition home or self-care (01) ==
PROVIDERS: Emergency Provider Family Medicine; PCP Nurse Practitioner
DX: S80.11XA Contusion of right lower leg, initial encounter (principal); X58.XXXA Exposure to other specified factors, initial encounter; Z79.01 Long term (current) use of anticoagulants; Z87.891 Personal history of nicotine dependence; J44.9 Chronic obstructive pulmonary disease, unspecified; E78.5 Hyperlipidemia, unspecified
CPT/HCPCS: 36415; 80053; 85025; 85610; 99283

== ENCOUNTER → 2025-01-05 15:09 | Outpatient (BNVA) | payer OTHER, SELFPAY | PROVIDERS: PCP Nurse Practitioner; Visit Provider Internal Medicine | DX: J45.909 Unspecified asthma, uncomplicated (principal); I48.91 Unspecified atrial fibrillation; G47.10 Hypersomnia, unspecified; E78.5 Hyperlipidemia, unspecified; I73.9 Peripheral vascular disease, unspecified; E03.9 Hypothyroidism, unspecified; Z87.891 Personal history of nicotine dependence; I35.0 Nonrheumatic aortic (valve) stenosis | CPT/HCPCS: 99214 ==

== ENCOUNTER 2025-01-24 09:47 | Outpatient (CLI) | payer OTHER, SELFPAY ==
--- NOTE | 2025-01-24 10:00 | USCV_ITS ---
Rudy Joe Age: 69 Gender: M : 1955 Exam Date: 01/24/2025 09:54 Ordering Phys: Isra Reyes M.D ([email or web address]) Technologist: Exam Location: [facility] – [place] Indication: as BP: 130 / 75 HR: 56 Rhythm: Sinus Technical Quality: Adequate MEASUREMENTS (Male / Female) Normal Values 2D ECHO LV Diastolic Diameter PLAX 5.1 cm 4.2 - 5.9 / 3.9 - 5.3 cm IVS Diastolic Thickness 1.3 cm 0.6 - 1.0 / 0.6 - 0.9 cm IVS Systolic Thickness 1.4 cm LVPW Diastolic Thickness 1.8 cm 0.6 - 1.0 / 0.6 - 0.9 cm LVPW Systolic Thickness 2.6 cm LVOT Diameter 2.0 cm LV Ejection Fraction 2D Teich 60.8 % LV Ejection Fraction MOD 4C 68.8 % LV Ejection Fraction MOD 2C 68.9 % LV Ejection Fraction 2C AL 69.4 % LA Diameter 4.3 cm RA Systolic Volume 4C AL 45.4 ml RA Systolic Volume 4C MOD 42.2 ml LA Sys Volume AL 68.8 cm cubed LA Sys Volume Index AL 31.8 cm cubed/m squared Aorta at Sinotubular Diameter 3.5 cm IVC Diameter 1.5 cm M-MODE LA Ao Ratio MM 1.3 AV Cusp Separation MM 1.5 cm DOPPLER AV Peak Velocity 376.0 cm/s LVOT Peak Velocity 91.0 cm/s AV Area Cont Eq vti 0.7 cm squared AV Area Cont Eq pk 0.8 cm squared MV Peak Velocity 130.0 cm/s MV Area PHT 2.7 cm squared Mitral E to A Ratio 1.0 TR Peak Velocity 313.0 cm/s TR Peak Gradient 39.2 mmHg TV Peak E Velocity 83.0 cm/s PV Peak Velocity 111.0 cm/s FINDINGS Left Ventricle Left ventricle is normal in size. LV systolic function is normal with EF of 60-65%. No regional wall motion abnormalities are seen. Right Ventricle Normal in size and function Right Atrium Normal in size Left Atrium Normal in size Mitral Valve Structurally normal mitral valve. Mild mitral regurgitation Aortic Valve Aortic valve is thickened and calcified. Severe aortic stenosis with aortic valve area of 0.8 cm2 and mean gradient of 23 mmHg. V-max is 3.76 m/s Tricuspid Valve Mild tricuspid regurgitation. RVSP is 35-40 mmHg. This is consistent with mild pulmonary hypertension. Pulmonic Valve Not well-visualized Pericardium Normal Aorta Normal in size IVC Appears to be normal CONCLUSIONS LV systolic function is normal with EF of 60-65%. Mild mitral regurgitation. Severe aortic stenosis Mild tricuspid regurgitation Mild pulmonary hypertension Compared to prior echocardiogram from 2023, LV systolic function is improved and aortic stenosis has worsened significantly. Isra Reyes MD (Electronically Signed) Final Date: 01 February 2025 08:26 S
== END 2025-01-24 09:48 | disposition home or self-care (01) ==
LOC: RAD 09:48
PROVIDERS: PCP Nurse Practitioner; Visit Provider Internal Medicine
DX: I35.0 Nonrheumatic aortic (valve) stenosis (principal); I34.0 Nonrheumatic mitral (valve) insufficiency; I36.1 Nonrheumatic tricuspid (valve) insufficiency; I27.20 Pulmonary hypertension, unspecified
CPT/HCPCS: 93306

== ENCOUNTER 2025-01-24 19:54 | Outpatient (CLI) | payer OTHER, SELFPAY | END 2025-01-24 19:55 | disposition home or self-care (01) | LOC: SLEEP 19:56 | PROVIDERS: PCP Nurse Practitioner; Visit Provider Internal Medicine Pulmonary Disease | DX: G47.33 Obstructive sleep apnea (adult) (pediatric) (principal) | CPT/HCPCS: 95810 ==

== ENCOUNTER → 2025-02-04 10:48 | Outpatient (BNVA) | payer OTHER, SELFPAY | PROVIDERS: PCP Nurse Practitioner; Visit Provider Internal Medicine | DX: I35.0 Nonrheumatic aortic (valve) stenosis (principal) | CPT/HCPCS: 36415; 80048; 85025; 85610; 99214 ==

== ENCOUNTER 2025-02-17 05:42 | Outpatient (CLI) | payer OTHER, SELFPAY ==
[2025-02-17] VITALS (13 sets, daily range): BP systolic 106–134; BP diastolic 44–72; PULSE 49–63; RESP 17–22; TEMP 36.4; O2SAT 91–96
--- NOTE | 2025-02-17 08:27 | PC.NURSE ---
pt arrived at [address] order for hydration prior to procedure.
--- NOTE | 2025-02-17 10:00 | XACV_ITS ---
Exam Room: 2 Ht: 175 cm Wt: 102 kg BSA: 2.26 m2 Gender: Male : 1955 Any Known Allergies: No known allergies Exam Priority: Routine Procedure(s): Procedure Description: Diagnostic procedure Procedure Description: Right Heart Catheterization Procedure Description: O2 saturation Procedure Description: Coronary Angiography Diagnostic Cath Status: Elective Diagnostic Findings * INDICATION: Aortic stenosis. * Left Main has no significant disease. * Right heart cath: Normal right and left sided cardiac pressures. 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 * Aortic valve study: Moderate aortic stenosis with aortic valve area of 1.17cm2 and mean gradient across aortic valve of 32mmHg. * Circumflex has no disease. * Right Coronary Artery has no disease. * Proximal Left Anterior Descending: luminal irregularities 20% stenosis, SLIME: 3 flow. * Coronary angiography shows left dominance. Conclusions 1. Non-obstructive coronary artery disease. 2. Moderate aortic stenosis. 3. 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 Recommendations * Continue to monitor aortic stenosis with serial echocardiograms. * Outpatient cardiology follow up in 4 weeks. Interventional RX Recommendation: medical therapy and/or counseling Diagnostic RX Recommendation: medical therapy and/or counseling Anticoagulation: Heparin Pressures Phase:Rest AO : 110 / 76 ( 92 ) @ 10:55:00 AM 114 / 67 ( 87 ) @ 11:04:00 AM LV : 139 / 14 / 25 @ 11:04:00 AM RV : 49 / 0 / 14 @ 10:48:00 AM PA : 41 / 11 ( 23 ) @ 10:47:00 AM 46 / 19 ( 28 ) @ 10:47:00 AM RA : a wave = 12 v wave = 11 mean = 8 @ 10:49:00 AM PCW : a wave = 14 v wave = 17 mean = 12 @ 10:46:00 AM O2 Content Phase:Rest PA : O2 Content O2: 65.4 @ 11:04:00 AM Saturations Phase:Rest AO : 89 @ 10:55:00 AM PA : 65 @ 11:04:00 AM Cardiac Output Phase:Rest Moshe : 5 @ 10:18:08 AM Moshe Cardiac Index: 2 @ 10:18:08 AM Flow Phase:Rest Qp : 5 @ 10:18:08 AM Qs : 5 @ 10:18:08 AM Valves Phase:DefaultPhase AV : 25.0 @ 10:18:08 AM AV Mean Gradient: 32.0 @ 10:18:08 AM AV Flow: 292 @ 10:18:08 AM AV Area: 1.2 @ 10:18:08 AM AV Area Index: 0.54 @ 10:18:08 AM Clinical Evaluation EBL: 5mL-10mL Procedural Details Procedure Consent Obtained. Pre-Procedure Time Out. Identified patient by full name and date of as verbalized by the patient/guarantor. Does the consent match the physician's order: Yes. Accurate & Complete Informed Consent: Yes. Inpatient/Outpatient History & Physical on Chart: Yes. If H&P is completed, is and addenduem needed: No. Visualize and Verify Site with Patient/Guarantor: N/A. Relevant Radiology Images available: Yes. The risks, benefits, and alternatives of sedation and/or procedure were discussed by physician. The patient agrees to continue. Procedure started. [facility] Clinical Fraility Score: 3: Managing Well. 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 Chest Pain Symptom Assessment: Atypical Angina. Cardiovascular Instability: No. Correct patient, site and procedure confirmed by cath team. PERRLA. Strong, equal hand manager intel bilaterally. Lungs clear x 5 lobes. IV Site on Arrival: 20 gauge in the left anticubital. IV Fluids: 0.9% NaCl at KVO. 500 mL infused prior to can labeler. Pre Procedural Pulses: right dorsalis pedis was 1+. Pre Procedural Pulses: left dorsalis pedis was Doppled. Pre Procedural Pulses: right posterior tibial was 2+. Pre Procedural Pulses: left posterior tibial was 3+. Pre Procedural Pulses: bilateral radial was 3+. Patient on Room Air for RHC procedure. right groin was prepped with chloroprep then draped in the usual sterile fashion. right radial was prepped with chloroprep then draped in the usual sterile fashion. right brachial was prepped with chloroprep then draped in the usual sterile fashion. Physician notified. Baseline sample Acquired. HR: 54 BPM. Patient's family in the laborer shaft sinking waiting room. Dr. Reyes will update at the completion of the procedure. Equipment: 6F - Radial. Cardiac Cath Pack. ACIST Manifold Kit Model BT 2000. Heparinized Saline (2 units/mL), 1000 mL bag. Physician arrived. Physician scrubbed in. Immediate Pre-Procedure Time Out. Correct Patient: Yes; Correct Procedure: Yes; Correct Site: Yes; Correct Patient Position: Yes; Correct Supplies: Yes; Dried Flammable Prep: Yes; Blood Products Available: N/A;. Micropuncture wire in through the existing 20g PIV in the right brachial vein. Lidocaine 1% infiltrated to the right brachial. [place] catheter inserted. 0.014 [place] guidewire in through the swan. [place] and wire out. Aborting brachial access, moving to femoral access. Lidocaine 1% infiltrated to the right groin. Venous access obtained with a micropuncture set. [place] catheter inserted. Oximetry samples were obtained. Normal venous range: 60-85%. Normal arterial range: 95-100%. Pressure measurements obtained. ABG drawn and sent with respiratory therapy. [place] out. Lidocaine 1% infiltrated to the right radial. Arterial access obtained. Oxygen started at 2liters/min via nasal canula. A 5 kazakh TIG catheter in over the exchange J wire. Multiple views taken of left coronary artery. Catheter redirected to the RCA. Multiple views taken of right coronary artery. Catheter redirected to the LV. Catheter out, wire left in place. Hedrick catheter in OTW. Gradient taken: LV 139/14,25; AO 114/67(87); Mean: 32mmHg, Peak to Peak: 25mmHg, SEP: 18sec/min; HR: 51 BPM; SpO2: 99%. Catheter removed over the exchange J wire. A TR Band was successful obtaining hemostatsis at the Right Radial artery insertion site. A Mynx was successful obtaining hemostatsis at the Right Femoral vein insertion site. Lot # [id number] Exp. . A Manual Compression was successful obtaining hemostatsis at the Right Brachial Vein insertion site. Dr. Reyes scrubbed out. Post Procedure: Pulses reassessed and unchanged. PERRLA. Strong, equal hand manager intel bilaterally. No VTE prophylaxis required. Medication's Wasted: Lidocaine 1% = 18 mL. Medication's Wasted: Nitro = 49.8 mg. Medication's Wasted: Heparin = 4000 units. Medication's Wasted: Other = Versed 1 mg. Medication's Wasted: Other = Fentanyl 100 mcg. Total IV fluids: 50 mL. Post-op diagnosis: Moderate /non-obstructive CAD. Complications: none. Estimated blood loss: 5mL-10mL. Responsiveness - Normal response to verbal stimuli; alert and oriented, PERRLA. Airway - Unaffected, no intervention required; spontaneous ventilation. Circulation: W/N/L, pulses unchanged. Nausea/Vomiting: No. Procedure completed. Patient transferred by bed to CPRU. Vital chart was stopped. Access Site Site: Right Brachial Vein Sheath Size: 6 Fr Hemostasis Method: Manual Compression Hemostasis Success: Successful Site: Right Femoral vein Sheath Size: 6 Fr Hemostasis Method: Mynx Hemostasis Success: Successful Site: Right Radial artery Sheath Size: 6 Fr Hemostasis Method: TR Band Hemostasis Success: Successful Procedure Medications Start: 9:25 AM Stop: 9:25 AM Medication: Versed Amount: 1 mg Route: I.V. Start: 9:52 AM Stop: 9:52 AM Medication: Nitrogylcerin Amount: 200 mcg Route: I.A. Start: 9:59 AM Stop: 9:59 AM Medication: Heparin Amount: 5000 units Route: I.V. I, the attending physician, have reviewed and verified all procedure medications. Yes, all medications given per verbal order History/Risk Factors Hypertension: No Dyslipidemia: Yes Peripheral Arterial Disease (PAD): No Myocardial Infarction (UT): No Obesity: Yes Renal Disease: No Tobacco Use: Former Prior Interventions PCI: No CABG: No Valve Surgery: No Report Signatures Finalized by Isra Reyes MD on 02/17/2025 10:37 AM
[2025-02-17 10:06] LABS: Arterial Blood Gas Hematocrit 42.6 % (42-52); Blood Gas Operator Identificat GD; Blood Gas Sample Site Not specified; Blood Gas Sample Type Not specified; Carboxyhemoglobin 2.3 %THgb (0.4-20.1); Methemoglobin 0.5 % (0.4-1.5)
[2025-02-17 10:08] LABS: Arterial Blood Gas Hematocrit 42.0 % (42-52); Blood Gas Operator Identificat GD; Blood Gas Sample Site Not specified; Blood Gas Sample Type Not specified; Carboxyhemoglobin 2.5 %THgb (0.4-20.1); Methemoglobin 0.5 % (0.4-1.5)
--- NOTE | 2025-02-17 10:26 | W.PM.OPSUD ---
Surgery/Procedure H&P Update DATE OF PROCEDURE: February 17, 2025 DATE H&P PERFORMED: 02/04/25 H&P UPDATE INFORMATION: I have reviewed H&P completed within last 30 days, I have examined patient prior to procedure and No changes to prior documentation PREOP DIAGNOSIS: Aortic stenosis PRIMARY INDICATION FOR PROCEDURE: Aortic stenosis PLANNED PROCEDURE: Operation Date: 02/17/25 10:00 Proposed Procedures p Cardiac Catheterization - RLHC w/wo LV & Coros(Bilateral) - Isra Reyes M.D Possible percutaneous coronary intervention PATIENT REASSESSED PRIOR TO SEDATION, WITH NO CHANGE NOTED: Yes PHYSICAL EXAM: alert, oriented x 3, clear to auscultation bilaterally and regular rate & rhythm AIRWAY EVAL/ANESTHESIA PLAN: normal airway, ASA III, Local Anesthesia, Risks, benefits & alternatives of sedation and/or procedure discussed and Patient agrees to continue as planned ADDITIONAL INFORMATION: Moderate sedation
--- NOTE | 2025-02-17 10:36 | PC.NURSE ---
received pt from manager lab post left and right heart catheterization. pt alert and oriented x3. pt complains of no pain. tr band on right wrist, pressure dressing on right bracial, and mynx closure on right femoral venous site. no hematomas or brusing noted. pt and family educated on restrictions and bed rest limits. pt and family acknowledged understanding. nurse to educated throughout recovery as well. pt to be monitored as needed and per protocol.
--- NOTE | 2025-02-17 13:25 | PC.NURSE ---
pt ambulated with no complaints. no bruising or swelling noted at the femoral site.
== END 2025-02-17 13:26 | disposition home or self-care (01) ==
PROVIDERS: PCP Nurse Practitioner; Visit Provider Internal Medicine
DX: I25.10 Atherosclerotic heart disease of native coronary artery without angina pectoris (principal); I35.0 Nonrheumatic aortic (valve) stenosis; I27.20 Pulmonary hypertension, unspecified; E78.5 Hyperlipidemia, unspecified; E66.9 Obesity, unspecified; Z87.891 Personal history of nicotine dependence; I48.91 Unspecified atrial fibrillation; Z79.01 Long term (current) use of anticoagulants; Z85.72 Personal history of non-Hodgkin lymphomas; E03.9 Hypothyroidism, unspecified; J44.9 Chronic obstructive pulmonary disease, unspecified
CPT/HCPCS: 36415; 82810; 93460; 96360; 96361; 96365; 99152; 99153; C1751; C1760; C1769; C1887; C1894; G0269; J1644; J2250; J3010; J3490; J7030; J9999; Q0163; Q9967

== ENCOUNTER → 2025-03-22 14:47 | Outpatient (BNVA) | payer OTHER, SELFPAY | PROVIDERS: PCP Nurse Practitioner; Visit Provider Internal Medicine Cardiovascular Disease | DX: I48.0 Paroxysmal atrial fibrillation (principal); Z79.01 Long term (current) use of anticoagulants; G47.30 Sleep apnea, unspecified; I35.0 Nonrheumatic aortic (valve) stenosis; I25.10 Atherosclerotic heart disease of native coronary artery without angina pectoris; I27.20 Pulmonary hypertension, unspecified; Z87.891 Personal history of nicotine dependence | CPT/HCPCS: 99214 ==

== ENCOUNTER → 2025-04-27 10:15 | Outpatient (BNVA) | payer OTHER, SELFPAY | PROVIDERS: PCP Nurse Practitioner; Visit Provider Nurse Practitioner Family | DX: I48.91 Unspecified atrial fibrillation (principal); G47.30 Sleep apnea, unspecified; I27.20 Pulmonary hypertension, unspecified; J44.9 Chronic obstructive pulmonary disease, unspecified; E87.70 Fluid overload, unspecified; Z87.891 Personal history of nicotine dependence; I35.0 Nonrheumatic aortic (valve) stenosis; R06.02 Shortness of breath | CPT/HCPCS: 80048; 83880; 85378; 99214 ==

== ENCOUNTER 2025-05-06 07:06 | Outpatient (CLI) | payer OTHER, SELFPAY ==
--- NOTE | 2025-05-06 07:12 | USCV_ITS ---
Heath Rudy Age: 69 Gender: M : 1955 Exam Date: 05/06/2025 07:21 Ordering Phys: Marisa Ram Technologist: Exam Location: [facility] [place] Indication: screening for hx of smoking HISTORY: Diameter (cm) AP x Transverse x Length Velocity (cm/s) Waveform Prox Aorta: 2.30 x 2.50 x 138.80 Mid Aorta: 2.10 x 2.40 x 56.70 Distal Aorta: 2.50 x 2.70 x 85.90 Right Iliac Prox: 1.05 x 1.71 x 132.00 Left Iliac Prox: 1.05 x 1.45 x 87.50 Stent Prox Landing x x Aneurysmal Sac Max x x Lt Lat Sac Dim Rt Lat Sac Dim Stent Dist Landing x x Right Iliac Stent x x Left Iliac Stent x x Right Renal Art Left Renal Art FINDINGS: Comparison:. 03/03/23 A complete assessment of the abdominal aorta was not possible. Limited by body habitus.no evidence of abdominal aortic aneurysm. There is evidence of atherosclerotic plaque no significan stenosis in the right common iliac artery. There is evidence of atherosclerotic plaque no significan stenosis in the left common iliac artery. CONCLUSIONS No AAA, limited by body habitus. Dr. Milagros Call DO (Electronically Signed) Final Date: 06 May 2025 07:45 S
== END 2025-05-06 07:07 | disposition home or self-care (01) ==
LOC: RAD 07:07
PROVIDERS: PCP Nurse Practitioner; Visit Provider Nurse Practitioner
DX: Z87.891 Personal history of nicotine dependence (principal); I70.8 Atherosclerosis of other arteries
CPT/HCPCS: 76706